=== PATIENT | female | born 1985 | race African-American/Black ===

== ENCOUNTER 2023-02-27 20:54 | Outpatient (REF) | payer MEDICAID, SELFPAY ==
[2023-03-01 20:24] LABS: Candida species Negative (Negative); Gardnerella vaginalis Positive (Negative); Trichomonas vaginalis Negative (Negative)
[2023-03-01 21:09] LABS: Trich vag by NAA Negative (Negative)
== END 2023-02-27 20:55 | disposition home or self-care (01) ==
LOC: LAB 20:54
PROVIDERS: Visit Provider Obstetrics & Gynecology
DX: Z20.2 Contact with and (suspected) exposure to infections with a predominantly sexual mode of transmission (principal); N89.8 Other specified noninflammatory disorders of vagina
CPT/HCPCS: 87480; 87491; 87510; 87591; 87660; 87661

== ENCOUNTER 2024-03-02 07:10 | Emergency (ER) | payer MEDICAID, SELFPAY ==
[2024-03-02 07:15] VITALS: BP 133/98; PULSE 80; TEMP 36.8; O2SAT 99; BMI 29.9
--- NOTE | 2024-03-02 07:29 | XR_ITS ---
The [address] [address] Patient Name: BLAYNE WALKER MRN: [id number] date: 1985 Sex: F Assigned Patient Location: ER Current Patient Location: ER Accession/Order Number: [id number] Exam Date: 03/02/2024 07:45 Report Date: 03/02/2024 09:54 At the request of: ARMIN JACKSON Procedure: XR thoracic spine 2V XR thoracic spine 2V CLINICAL: Atraumatic pain COMPARISON: AP only chest radiograph 04/15/2014, limited upper thoracic spine images from cervical spine CT 05/08/2015. TECHNIQUE: Two radiographic views thoracic spine in AP and lateral projection. FINDINGS: No fracture or dislocation is seen. Vertebral body height and AP alignment are grossly preserved. The cervicothoracic junction is partially obscured by bony overlap. Pedicles appear symmetric and intact. There are mild vertebral endplate degenerative changes in the mid to lower thoracic spine. Remaining included osseous structures appear grossly intact. Included portions of the lungs show no consolidation or localizing infiltrate. XR/XR thoracic spine 2V IMPRESSION: No fracture or dislocation is seen. Mild vertebral degenerative changes noted. Electronically authenticated by: TRES ESPINO Date: 03/02/2024 09:54
--- NOTE | 2024-03-02 07:30 | ED_ITS ---
HPI HPI - Back Pain/Injury General Chief Complaint: Back Pain/Injury Stated Complaint: back pain Time Seen by Provider: 03/02/24 07:11 Source: patient Mode of arrival: walk-in Limitations: no limitations History of Present Illness HPI Narrative: 38-year-old female presents to the emergency department for back pain. It started 5 days ago and was not associated with any trauma. It is in a small local area in her lower thoracic area. No dysuria or hematuria. No fever and chills. The pain does not seem to radiate and she states it hurts more to push on it. She was seen at another hospital emergency department and she was given Flexeril and a shot. Related Data Previous Rx's ?Medication ?Instructions ?Recorded tramadol 50 mg tablet 50 mg PO Q6H PRN pain 5 days #20 03/02/24 tabs Allergies Allergy/AdvReac Type Severity Reaction Status Date / Time No Known Drug Allergies Allergy Verified 03/02/24 07:14 Opioid HPI Opioid Management Most Recent Opioid Data: Last Pain Scale 2 03/02/24 08:42 Last ED Pain Assessment 03/02/24 08:42 Review of Systems ROS Narrative A ten point review of systems is negative except as noted above. Exam Narrative Exam Narrative: Nurses note and vital signs reviewed and patient is not hypoxic. General: The patient appears uncomfortable and is tearful Skin: Warm, dry, no pallor noted. There is no rash noted. Head: Normocephalic, atraumatic Eye: Normal conjunctiva, no drainage Ears, Nose, Mouth, and Throat: oral mucosa is moist. Nares patent. Cardiovascular: Regular Rate and Rhythm Respiratory: Patient is in no distress, no accessory muscle use, lungs are clear to auscultation, no wheezing, rales or rhonchi Back: No bruise or rash. In the lower thoracic area just to the right of midline she has a small area of tenderness. GI: Soft and nontender Musculoskeletal: The patient has no evidence of calf tenderness, no pitting edema, symmetrical pulses noted bilaterally Neurological: A&O, normal speech Psychiatric: Cooperative Constitutional Vital Signs, click to edit/add: Last Vital Signs Temp 98.2 F 03/02/24 07:15 Pulse 78 03/02/24 10:04 Resp 18 03/02/24 10:04 BP 133/109 H 03/02/24 10:04 Pulse Ox 98 03/02/24 10:04 Course Vital Signs Vital signs: Vital Signs Temperature 98.2 F 03/02/24 07:15 Pulse Rate 80 03/02/24 07:15 Respiratory Rate 18 03/02/24 07:15 Blood Pressure 133/98 H 03/02/24 07:15 Pulse Oximetry 99 03/02/24 07:15 Temperature 98.2 F 03/02/24 07:15 Pulse Rate 78 03/02/24 10:04 Respiratory Rate 18 03/02/24 10:04 Blood Pressure 133/109 H 03/02/24 10:04 Pulse Oximetry 98 03/02/24 10:04 MDM - Back Pain/Injury MDM Narrative Medical decision making narrative: X-rays and urinalysis are negative. She is not . She is feeling improved and is able to be discharged home. Treatment diagnosis and follow-up were discussed with the patient. My clinical impression is that she has muscular pain. Differential Diagnosis Differential diagnosis: Likely other (Thoracic spine fracture, muscle strain, UTI) Lab Data Attestation: I reviewed the patient's lab results. Labs: Lab Results 03/02/24 Range/Units 07:44 Urine Color Lt. yellow (YELLOW) Urine Clarity Clear (CLEAR) Urine pH 7.0 (5.0-9.0) Ur Specific Wood 1.025 (1.005-1.025) Urine Protein Negative (NEG/TRACE) mg/dL Urine Glucose (UA) Negative (NEGATIVE) mg/dL Urine Ketones Negative (NEGATIVE) mg/dL Urine Occult Blood Negative (NEGATIVE) Urine Nitrite Negative (NEGATIVE) Urine Bilirubin Negative (NEGATIVE) Urine Urobilinogen 0.2 (0.2-1.0) EU/dL Ur Leukocyte Esterase Negative (NEGATIVE) Urine RBC None seen (0-2) #/HPF Urine WBC None seen (NONE SEEN) #/HPF Ur Squamous Epith Cells Moderate A (NONE/RARE) #/LPF Urine Bacteria None seen (NONE SEEN) #/HPF Urine Mucus None seen (NONE SEEN) Urine HCG, Qual Negative (NEGATIVE) Imaging Data Thoracic x-ray: Radiologist's impression: ITS Impressions Thoracic Spine X-Ray 03/02/24 07:29 IMPRESSION: No fracture or dislocation is seen. Mild vertebral degenerative changes noted. Electronically authenticated by: TRES ESPINO Date: 03/02/2024 09:54 Discharge Plan Discharge Stand Alone Forms: Portal Instructions Chief Complaint: Back Pain/Injury Clinical Impression: Thoracic back pain Patient Disposition: Home, Self-Care Time of Disposition Decision: 10:03 Condition: Good Mode of Transportation: Private Vehicle Prescriptions / Home Meds: New tramadol 50 mg tablet 50 mg PO Q6H PRN (Reason: pain) 5 Days Qty: 20 0RF Print Language: Citizen Of [place] Referrals: Physician,Non-Staff, MD [Primary Care Provider] - 1 week
[2024-03-02] MEDS: ORPHENADRINE 60 MG/ 2 ML VIAL IM (07:35)
[2024-03-02] MEDS: KETOROLAC TROMETHAMINE 60 MG/2 ML VIAL IM (07:35)
[2024-03-02 07:56] LABS: Bilirubin Urine NEGATIVE (NEGATIVE); Blood Urine NEGATIVE (NEGATIVE); Clarity Urine CLEAR (CLEAR); Color Urine LT. YELLOW (YELLOW); Glucose Urine UA NEGATIVE (NEGATIVE); Ketones Urine NEGATIVE (NEGATIVE); Leukocyte Esterase Urine NEGATIVE (NEGATIVE); Nitrite Urine NEGATIVE (NEGATIVE); Protein Urine NEGATIVE (NEG/TRACE); Specific Gravity Urine 1.025 (1.005-1.025); Urobilinogen Urine 0.2 EU/dL (0.2-1.0)
[2024-03-02 08:08] LABS: HCG Qualitative Urine* NEGATIVE (NEGATIVE); Internal Control Within Normal Limits
[2024-03-02 08:13] LABS: Bacteria Urine NONE SEEN #/HPF (NONE SEEN); Mucus Urine NONE SEEN (NONE SEEN); RBC Urine NONE SEEN #/HPF (0-2); Squamous Epithelial Cell Urine MODERATE #/LPF (NONE/RARE); WBC Urine NONE SEEN #/HPF (NONE SEEN)
[2024-03-02 08:35] VITALS: BP 130/78; PULSE 82; O2SAT 98
[2024-03-02 10:04] VITALS: BP 133/109; PULSE 78; O2SAT 98
== END 2024-03-02 10:11 | disposition home or self-care (01) ==
PROVIDERS: Emergency Provider Emergency Medicine
DX: M54.6 Pain in thoracic spine (principal)
CPT/HCPCS: 72070; 81001; 84703; 96372; 99284; J1885; J2360

== ENCOUNTER 2024-04-29 20:26 | Outpatient (REF) | payer MEDICAID, SELFPAY | END 2024-04-29 20:27 | disposition home or self-care (01) | LOC: LAB 20:26 | PROVIDERS: Visit Provider Physician Assistant | DX: Z01.419 Encounter for gynecological examination (general) (routine) without abnormal findings (principal) | CPT/HCPCS: 87624; 88175 ==

== ENCOUNTER 2025-05-08 15:10 | Outpatient (REF) | payer MEDICAID, SELFPAY ==
--- OUTSIDE RECORDS SUMMARY | 2024-08-20 10:45 | XMS_ITS ---
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 * Medical History: Objective: * Vitals: Assessment: Plan: * Treatment: * Billing Information: * Visit Code: * Procedure Codes: * Electronic signature of LYRIC Amaro on 05/08/2025 at 10:56 AM EDT Sign off status: Pending * Provider: Nadja Wing Date: 1 10/21/2023 Generated for Printi ng/Faxing/eTransmitting on: 0 05/08/2025 10:56 AM EDT
--- OUTSIDE RECORDS SUMMARY | 2024-10-14 05:15 | XMS_ITS ---
Author Organization [facility] vice Address [address] [place], [place] [id number] Care Team Providers Care Policy Change Clerks Supervisor Name Role Phone Kerrie Scott [facility] [phone] REASON FOR VISIT Ext #1 Social History Sex Assigned At : Social History Observation Description Sex Assigned At Female Encounters Encounter Location Date Provider Diagnosis Dental Main [address] [place], [place] [id number] 10/14/2024 Kerrie Scott Plan Of Treatment No Information Progress Notes * Seema ZIMMER CDOB:1985 (39 yo F)Acc No.[id number]:10/14/2024 Patient: Seema MARTIN Provider: Karlos Scott DDS :1985 A ge:39 Y S ex:Female Date:10/14/2024 Address:[address] [place], [place] [id number] Subjective: * Chief Complaints: * 1 . Ext #1. * Medical History: Objective: * Vitals: Assessment: Plan: * Treatment: * Billing Information: * Visit Code: * Procedure Codes: * Electronic signature of Steph Scott DDS on 05/08/2025 at 10:56 AM EDT Sign off status: Pending * Provider: Karlos Scott DDS Date: 0 10/14/2024 Generated for Printi ng/Faxing/eTransmitting on: 0 05/08/2025 10:56 AM EDT
--- OUTSIDE RECORDS SUMMARY | 2025-05-08 11:00 | XMS_ITS | Encounter Summary ---
Author Organization [facility] Address [address] [place] [address] Care Team Providers Care Gas Distribution And Emergency Clerk Name Role Phone Raghav Robbins DO Unavailable Alex Sy MD Primary Care Provider [phone] Reason for Visit * Reason Comments Well Women Visit Encounter Details Date Type Department Care Team (Late st Contact Info) Description 05/08/2025 11:00 AM EDT Office Visit [facility] [address] [id number] Raghav Robbins DO [address] [place], [place] [id number] Well woman exam with routine gynecological exam Social History Tobacco Use Types Packs/Day Years Used Date Smoking Tobacco: Never Comments No Sex and Gender Information Value Date Recorded Sex Assigned at Not on file Legal Sex Female 11:47 PM EDT Gender Identity Not on file Sexual Orientation Not on file documented as of this encounter Last Filed Vital Signs Vital Sign Reading Time Taken Comments Blood Pressure 110/62 05/08/2025 11:24 AM EDT Pulse - - Temperature - - Respiratory Rate - - Oxygen Saturation - - Inhaled Oxygen Concentration - - Weight 64.9 kg (143 lb) 05/08/2025 11:24 AM EDT Height - - Body Mass Index 26.16 02/27/2023 11:50 AM EDT documented in this encounter Progress Notes * Marlena Jeffries NP - 05/08/2025 11:00 AM EDT Reason for Appointment: Patient ID: Seema Zimmer is a 39 y.o. female who presents for Well Women Visit Patient presents today for Annual Exam. MEDICATIONS Current Outpatient Medications Medication Instructions acyclovir (Zovirax) 400 MG tablet TAKE 1 TABLET BY MOUTH TWICE A DAY FOR 30 DAYS albuterol (2.5 MG/3ML) 0.083% nebulizer solution INHALE 1 NEBULE FOUR TIMES DAILY albuterol HFA 90 mcg/act inhaler INHALE 1 PUFF EVERY 6 HOURS NEEDED cetirizine (ZyrTEC) 10 MG tablet Every 24 hours FLUoxetine (PROZAC) 20 mg, Oral, Daily hydrOXYzine HCl (ATARAX) 25 mg, Oral, 4 times daily PRN Symbicort 160-4.5 MCG/ACT inhaler 2 puffs, Inhalation, 2 times daily, Rinse mouth after use. 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 (HCC)10/30/2023 Moderate persistent asthma without complication (HCC) 10/30/2023 Seasonal allergic rhinitis due to pollen 10/30/2023 Moderate persistent asthma with (acute) exacerbation (HCC) 10/30/2023 Yeast infection 11/02/2023 Exposure to STD 11/02/2023 Vaginal discharge 11/02/2023 Resolved Ambulatory Problems Diagnosis Date Noted No Resolved Ambulatory Problems Past Medical History: Diagnosis Date Encounter for IUD insertion Encounter for IUD removal 02/27/2023 Herpes 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 Menorrhagia with irregular cycle HISTORY PAST MEDICAL HISTORY SOCIAL HISTORY Past Medical History: Diagnosis Date Encounter for IUD insertion Encounter for IUD removal 02/27/2023 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 No pertinent surgical history. REVIEW OF SYSTEMS Review of Systems: Review of Systems Constitutional: Negative. HENT: Negative. Eyes: Negative. Respiratory: Negative. Cardiovascular: Negative. Gastrointestinal: Negative. Genitourinary: Negative. Musculoskeletal: Negative. Skin: Negative. Neurological: Negative. All other systems reviewed and are negative. Hematological: Negative. Endocrine: Negative. Allergic/Immunologic: Negative. OBJECTIVE Objective: Physical Exam Constitutional: Appearance: Normal appearance. She is well-developed. Genitourinary: Breasts: Breasts are soft. Right: Normal. Left: Normal. Cardiovascular: Rate and Rhythm: Normal rate and regular rhythm. Pulmonary: Effort: Pulmonary effort is normal. Breath sounds: Normal breath sounds. Abdominal: General: Bowel sounds are normal. There is no distension. Palpations: Abdomen is soft. Tenderness: There is no abdominal tenderness. There is no guarding or rebound. Musculoskeletal: General: No swelling. Normal range of motion. Right lower leg: No edema. Left lower leg: No edema. Neurological: Mental Status: She is alert and oriented to person, place, and time. Skin: General: Skin is warm and dry. Psychiatric: Mood and Affect: Mood normal. Behavior: Behavior normal. Vitals and nursing note reviewed. Exam conducted with a pressure dispatcher present. Vitals: Estimated body mass index is 26.16 kg/m?? as calculated from the following: Height as of 02/27/23: 5' 2 . Weight as of this encounter: 143 lb. BP: 110/62 No LMP recorded (within months). ASSESSMENT & PLAN ICD-10-CM 1. Well woman exam with routine gynecological exam Z01.419 Pap Smear HPV DNA probe, amplified Annual Exam: Patient presents today for an annual exam. Patient states she is doing well and has no complaints. Pap was obtained without difficulty. Orders Placed This Encounter Procedures HPV DNA probe, amplified Follow Up: Patient is to return in one year for annual unless needed otherwise. Documented by Marlena Jeffries NP on behalf of: Raghav Robbins DO documented in this encounter Plan of Treatment Upcoming Encounters Date Type Department Care Team (Late st Contact Info) Description 05/18/2026 11:00 AM EDT Procedure Visit [facility] [address] [place] [address] Raghav Robbins DO [address] [place] [address] Scheduled Orders Name Type Priority Associated Diagnoses Orde r Schedule Pap Smear Pathology and Cytology Routine Well woman exam with routine gynecological exam Ordered: 05/08/2025 HPV DNA probe, amplified Microbiology Routine Well woman exam with routine gynecological exam Ordered: 05/08/2025 documented as of this encounter Visit Diagnoses Diagnosis Well woman exam with routine gynecological exam Routine gynecological examination documented in this encounter Care Teams Gas Distribution And Emergency Clerk Relationship Specialty Start Date End Date Raghav Robbins DO [address] [place] [address] PCP - [facility] [place] MANAGER PMO 06/04/24 Alex Sy MD [address] [place] [address] [place] [address] PCP - General Pediatrics 02/25/25 documented as of this encounter
--- OUTSIDE RECORDS SUMMARY | 2025-05-08 15:13 | XMS_ITS | Encounter Summary ---
Author Organization [facility] Address [address] [place] [address] Care Team Providers Care Crown Assembly Machine Operator Name Role Phone Raghav Robbins DO Unavailable Alex Sy MD Primary Care Provider [phone] Encounter Details Date Type Department Care Team (Latest Contact Info) Description 05/08/2025 Travel Social History Tobacco Use Types Packs/Day Years Used Date Smoking Tobacco: Never Comments No Sex and Gender Information Value Date Recorded Sex Assigned at Not on file Legal Sex Female 11:47 PM EDT Gender Identity Not on file Sexual Orientation Not on file documented as of this encounter Plan of Treatment Upcoming Encounters Date Type Department Care Team (Late st Contact Info) Description 05/18/2026 11:00 AM EDT Procedure Visit [facility] [address] [place] [address] Raghav Robbins DO [address] [place] [id number] documented as of this encounter Visit Diagnoses Not on filedocumented in this encounter Care Teams Crown Assembly Machine Operator Relationship Specialty Start Date End Date Raghav Robbins DO [address] [place] [address] PCP - [facility] [place] STEAM CRANE OPERATOR 06/04/24 Alex Sy MD [address] [place], [place] [phone] PCP - General Pediatrics 02/25/25 documented as of this encounter
--- OUTSIDE RECORDS SUMMARY | 2025-05-08 15:13 | XMS_ITS | Clinical Summary ---
Author Organization [employer] [facility] tem Address [id number] [address] [place] [address] Care Team Providers Care Relay Checker Name Role Phone Alex Sy DO Primary Care Provider [phone] Allergies No known active allergies Medications albuterol (PROVENTIL HFA;VENTOLIN HFA) 90 mcg/actuation inhaler Inhale 2 puffs every 6 (six) hours as needed for wheezing. Active albuterol (PROVENTIL,BRIANNE STEPHANIE) 2.5 mg /3 mL (0.083 %) nebulizer solutionIndicati ons:Severe persistent asthma with exacerbation (CMS-HCC),Modera te asthma with acute exacerbation, unspecified whether persistent Inhale 3 mL (2.5 mg total) by nebulization every 4 (four) hours as needed for wheezing. 75 mL 5 0 Active albuterol (PROVENTIL,BRIANNE STEPHANIE) 2.5 mg /3 mL (0.083 %) nebulizer solutionIndicati ons:Mild intermittent asthma without complication Inhale 3 mL (2.5 mg total) by nebulization every 6 (six) hours as needed for wheezing. 75 mL 0 Active hydrOXYzine (VISTARIL) 25 mg capsuleIndicatio ns:Generalized anxiety disorder Take 1 capsule (25 mg total) by mouth daily as needed for anxiety. 20 capsule 5 Active budesonide-glyco pyr-formoterol 160-9-4.8 mcg/actuation HFA aerosol inhalerIndicatio ns:Severe persistent asthma with acute exacerbation (CMS-HCC) Inhale 2 puffs in the morning and 2 puffs before bedtime. Lot [id number] Exp 2027-05. 5.9 g Active escitalopram (LEXAPRO) 10 mg tabletIndication s:Generalized anxiety disorder TAKE 1 TABLET (10 MG TOTAL) BY MOUTH IN THE MORNING 30 tablet 1 Active cyclobenzaprine (FLEXERIL) 10 mg tablet Take 1 tablet (10 mg total) by mouth 2 (two) times a day as needed for muscle spasms. 10 tablet 5 Active Active Problems Problem Noted Date Diagnosed Date Generalized anxiety disorder 12/03/2024 Assessment & Plan (01/14/2025 4:34 PM EDT): Anxiety symptoms have improved with starting on Lexapro 10 mg 1 tablet daily and using hydroxyzine 25 mg 1 capsule daily as needed for anxiety. Continue with current medications Assessment & Plan (12/03/2024 5:39 PM EDT): Patient had responded previously to SSRI and hydroxyzine. We will restart SSRI escitalopram 10 mg 1 tablet daily and use hydroxyzine 25 mg 1 capsule daily as needed for acute/ situation anxiety. Discussed with patient potential side effects and if she develops them or has worsening symptoms or suicidal ideations to stop medications and contact office History of herpes genitalis 04/18/2019 Abnormality of gait followin g cerebrovascular accident (CVA) 04/18/2019 Overview (04/18/2019): The patient had CVA and was an extreme delivery herself- physical therapy- gait nearly normal now Hx of delivery, currently 03/02 Overview (03/02/2019): First baby 34 weeks Second baby 36 weeks Third baby 37 weeks Fourth baby 37 weeks Fifth baby 37 weeks Asthma 07/16/2018 Assessment & Plan (01/14/2025 4:33 PM EDT): Based on her current and persistent symptoms of wheezing and shortness of breath and the results from her pulmonary function test in 2022 which showed Severe obstructive airflow defect with significant post bronchodilator response. Findings favor process such as asthma. There is evidence of hyperinflation and air trapping physiology. Diffusion capacity is normal. Symptoms would be consistent with moderate persistent asthma. Patient states that symptoms are not controlled with current regimen of Symbicort 160/4.5 mcg per actuation 2 puffs twice daily as to use albuterol inhaler or nebulizer treatment 2 to 3 times per day. PLAN: Patient to hold Symbicort. Given samples of Breztri 160/9/4.8 mcg per actuation 2 puffs inhaled twice daily for 1 week to see if symptoms will improve with addition of LAMA. Continue to use albuterol rescue inhaler and/or albuterol nebulizer treatments as needed for wheezing and shortness of breath. Call office once completed sample to update on how medication worked with breathing symptoms Assessment & Plan (12/03/2024 5:42 PM EDT): Patient's maintenance medications include Symbicort 160/4.5 mcg per actuation 2 puffs inhaled twice daily. She also has albuterol rescue inhaler and albuterol nebulizer solutions to use for breakthrough symptoms. Last pulmonary function test in February 2023 - Severe obstructive airflow defect with significant post bronchodilator response. Findings favor process such as asthma. There is evidence of hyperinflation and air trapping physiology. Diffusion capacity is normal. Patient's symptoms consistent with maintenance medication not controlling. We will treat current symptoms with prednisone 20 mg daily for 5 days to try to return symptoms to baseline. No evidence of infection so antibiotic was not prescribed Resolved Problems Problem Noted Date Diagnosed Date Resolved Date Gestational hypertension, third trimester 04/18/2019 01/14/2025 Asthma affecting in third trimester 04/18/20 19 01/14/2025 Asthma during 04/11/201901/02 Encounters Date Type Department Care Team Description 02/28/2025 Travel 02/24/2025 11:04 AM EDT - 02/24/2025 2:[address] [facility] [address] [place] [address] Faraz Pulido, DO Acute right-sided low back pain without sciatica (Primary Dx) Discharge Disposition: Home 02/24/2025 Travel from Last 3 Months Immunizations Immunization Administration Dates Next Due Tdap 07/17/2021 Family History Medical History Relation Name Comments Leukemia Brother Diabetes Father Hypertension Father Sickle cell anemia Son Relation Name Status Comments Brother Father Son Social History Tobacco Use Types Packs/Day Years Used Date Smoking Tobacco: Never Smokeless Tobacco: Never Tobacco Cessation:Counseling Given: Yes Alcohol Use Standard Drinks/Week Comments Not Currently 0 (1 standard drink = 0.6 oz pur e alcohol) rare AUDIT-C Answer Date Recorded Frequency of Alcohol Consumption Never 03/02/2019 Average Number of Drinks Not on file 019 Frequency of Binge Drinking Not on file 02/03 PHQ-2 Answer Date Recorded Total Score 2 01/14/2025 Childcare Answer Date Recorded Childcare Unknown 02/13/2019 Employment Answer Date Recorded Employment Unknown 02/13/2019 Hunger Screening Answer Date Recorded Within the past 12 months we worried whether our food would run out before we got money to buy more. Never True 02/24/2025 Within the past 12 months th e food we bought just didn't last and we didn't have money to get more. Never True 02/24/2025 Purpose - Life Answer Date Recorded Purpose and direction in life Unknown Comments No Sex and Gender Information Value Date Recorded Sex Assigned at Not on file Legal Sex Female 11:38 AM EDT Gender Identity Not on file Sexual Orientation Not on file Last Filed Vital Signs Vital Sign Reading Time Taken Comments Blood Pressure 147/93 02/24/2025 2:39 PM EDT Pulse 88 02/24/2025 2:39 PM EDT Temperature 37.1 C (98.7 F) 02/24/2025 11:09 AM EDT Respiratory Rate 19 02/24/2025 1:45 PM EDT Oxygen Saturation 100% 02/24/2025 2:39 PM EDT Inhaled Oxygen Concentration - - Weight 68 kg (150 lb) 02/24/2025 11:09 AM EDT Height 152.4 cm (5') 02/24/2025 11:09 AM EDT Body Mass Index 29.29 02/24/2025 11:09 AM EDT Plan of Treatment Upcoming Encounters Date Type Department Care Team (Late st Contact Info) Description 10/23/2025 1:00 PM EST Office Visit [facility] [address] [place] [address] [phone] Davis Ames, OD [address] [facility] [address] [facility] [address] [place] [address] Health Maintenance Due Date Last Done Comments Adult BMI Follow Up Plan 2004 COVID-19 Vaccine (3 - 2023-2 5 season) 2024 12/31/2021, 12/10/2021 Influenza Vaccine 05/05/2025 Depression Screening 01/14/2026 01/14/2025 Adult BMI Screening 02/24/2026 02/24/2025 Tobacco Screening 02/24/2026 02/24/2025 Pap Smear 04/29/2027 04/29/2024, 01/11/2023 DTaP,Tdap and Td Vaccines (8 - Td or Tdap) 07/17/2031 07/17/2021, 08/12/2015, 01/13/1999, Additional history exists Medical Devices Not on file Procedures Procedure Name Priority Date/Time Associated Diagnosis Comments HCG-BETA, SERUM Routine 03/02/2025 11:52 AM EDT Encounter for test, result positive HCG-BETA, SERUM Routine 02/28/2025 4:49 PM EDT Encounter for test, result positive CT ABDOMEN AND PELVIS WO CONT STAT 02/24/2025 1:45 PM EDT XR CHEST 1 VW STAT 02/24/2025 1:44 PM EDT POCT , URINE (NUCG) Routine 02/24/2025 1:23 PM EDT POCT NURSING URINE MACROSCOPIC UA Routine 02/24/2025 1:21 PM EDT ER EXTRA URINE MARBLE STAT 02/24/2025 1:11 PM EDT ER EXTRA URINE CULTURE STAT 1:11 PM EDT ER EXTRA URINE STAT 02/24/2025 1:11 PM EDT URINE CULTURE STAT 02/24/2025 1:11 PM EDT TROP I, HIGH SENSITIVITY 1 HOUR STAT 02/24/2025 12:29 PM EDT ECG 12-LEAD STAT 02/24/2025 11:48 AM EDT TROPONIN I, HIGH SENSITIVITY 0 HOUR STAT 02/24/2025 11:27 AM EDT D-DIMER STAT 02/24/2025 11:27 AM EDT TROPONIN I, HIGH SENSITIVITY 0 HOUR STAT 02/24/2025 11:27 AM EDT COMPREHENSIVE METABOLIC PANEL STAT 02/24/2025 11:27 AM EDT CBC WITH AUTO DIFFERENTIAL STAT 02/24/2025 11:27 AM EDT from Last 3 Months Results * hCG, quantitative, (03/02/2025 11:52 AM EDT) Only the most recent of2 resultswithin the time period is included. SERUM B HCG,3RD I.S. <5 mIU/mL 03/02/2025 12:39 PM EDT [facility] Blood Venous blood / Unknown Venipuncture / Unknown 03/02/2025 11:52 AM EDT 03/02/2025 11:52 AM EDT Narrative [facility] - 03/02/2025 12:39 PM EDT WEEKS (SINCE LMP) MIU/mL 3 WEEKS 5 - 50 4 WEEKS 5 - 426 5 WEEKS 18 - 7,340 6 WEEKS 1,080 - 56,500 7-8 WEEKS 7,650 - 229,000 9-12 WEEKS 25,700 - 288,000 13-16 WEEKS 13,300 - 254,000 17-24 WEEKS 4,060 - 165,400 25-40 WEEKS 3,640 - 117,000 MALES AND NON- FEMALES - <5 MIU/mL This test has been FDA approved for use in only. Elevated levels are not necessarily diagnostic for trophoblastic or nontrophoblastic neoplasms. us Raghav Robbins DO LAB BLOOD ORDERABLES Final Resu lt [facility] [address] [place] [address], [place] * CT abdomen and pelvis without contrast (02/24/2025 1:45 PM EDT) Anatomical Region Laterality Modality Body, Abdomen, Body Covera N/A Compu gloria Tomography 02/24/2025 2:0 9 PM EDT Narrative 02/24/2025 2:11 PM EDT EXAM: ABDOMEN AND PELVIS CT WITHOUT CONTRAST CLINICAL INFORMATION: Bilateral flank pain, difficulty with urination evaluation for signs of acute kidney stones/acute abnormalities.. TECHNIQUE: Routine unenhanced CT of the abdomen and pelvis was performed utilizing 5 mm axial reconstructions. Coronal and sagittal reformatted images as were obtained and reviewed. Automated exposure control was utilized. COMPARISON: 02/22/2022 FINDINGS: The limited visualized lung bases are unremarkable. There are no renal or ureteral stones. There is no collecting system dilatation in either kidney. The gallbladder is present. The liver, spleen, pancreas, and adrenals are unremarkable within the limitations of an unenhanced CT. A normal appendix is identified. There are no dilated loops of bowel or evidence for pneumatosis or free air. There is no significant free fluid. The abdominal aorta and common iliac arteries are normal in diameter. IMPRESSION: 1. No acute abnormalities in the abdomen and pelvis. 2. No renal or ureteral stones. 3. Normal appendix. All CT scans at this facility use dose modulation, iterative reconstruction, and/or weight based dosing when appropriate to reduce radiation dose to as low as reasonably achievable. Finalized by Dereck Dukes MD on 02/24/2025 2:11 PM Procedure Note Dereck Dukes MD - 02/24/2025 EXAM: ABDOMEN AND PELVIS CT WITHOUT CONTRAST CLINICAL INFORMATION: Bilateral flank pain, difficulty with urinationevaluation for signs of acute kidney stones/acute abnormalities.. TECHNIQUE: Routine unenhanced CT of the abdomen and pelvis was performedutilizing 5 mm axial reconstructions. Coronal and sagittal reformattedimages as were obtained and reviewed. Automated exposure control wasutilized. COMPARISON: 02/22/2022 FINDINGS: The limited visualized lung bases are unremarkable. There are no renal or ureteral stones. There is no collecting systemdilatation in either kidney. The gallbladder is present. The liver,spleen, pancreas, and adrenals are unremarkable within the limitations ofan unenhanced CT. A normal appendix is identified. There are no dilatedloops of bowel or evidence for pneumatosis or free air. There is no significant free fluid.The abdominal aorta and common iliac arteries are normal in diameter. IMPRESSION: 1. No acute abnormalities in the abdomen and pelvis. 2. No renal or ureteral stones. 3. Normal appendix. All CT scans at this facility use dose modulation, iterativereconstruction, and/or weight based dosing when appropriate to reduceradiation dose to as low as reasonably achievable. Finalized by Dereck Dukes MD on 02/24/2025 2:11 PM Faraz Pulido DO [facility] CT ORDERABLES Final Resul t * X-ray chest 1 view (02/24/2025 1:44 PM EDT) Anatomical Region Laterality Modality Body, Chest N/A Computed Radiogr aphy 02/24/2025 1:45 PM EDT Narrative 02/24/2025 1:46 PM EDT XR CHEST 1 VW 02/24/2025 1:40 PM INDICATION: Shortness of breath/Cough eval for pneumonia/acute abnormalities COMPARISON: 06/04/2023 TECHNIQUE: PA view of the chest was obtained FINDINGS: The lungs are clear. There is no pneumothorax. There is no pleural effusion. The cardiomediastinal silhouette is unremarkable. No acute osseous abnormalities. IMPRESSION: No acute cardiopulmonary process. Finalized by Alex Dill on 02/24/2025 1:46 PM Procedure Note Alex Dill MD - 02/24/2025 XR CHEST 1 VW 02/24/2025 1:40 PM INDICATION: Shortness of breath/Cough eval for pneumonia/acuteabnormalities COMPARISON: 06/04/2023 TECHNIQUE: PA view of the chest was obtained FINDINGS: The lungs are clear. There is no pneumothorax. There is no pleuraleffusion. The cardiomediastinal silhouette is unremarkable. No acuteosseous abnormalities. IMPRESSION: No acute cardiopulmonary process. Finalized by Alex Dill on 02/24/2025 1:46 PM us Faraz Pulido DO IMG DIAGNOSTIC IMAGING ORDERA BLES Final Result * POCT , urine (02/24/2025 1:23 PM EDT) Pathologist [facility] POC Urine Negative Negative, Indeterminate 02/24/2025 1:21 PM EDT [facility] Urine 02/24/2025 1:23 PM EDT 02/24/2025 1:21 PM EDT Faraz Pulido DO POINT OF CARE TEST ORDERABLES Final Result [facility] [address] [place] [address], [place] * (ABNORMAL) POCT Nursing Urine Macroscopic UA (02/24/2025 1:21 PM EDT) POC Urine Specific [place] 1.025 1.010, 1.015, 1.020, 1.025 02/24/2025 1:15 PM EDT [facility] POC Urine Leukocyte Esterase Negative Negative 02/24/2025 1:15 PM EDT [facility] POC Urine Nitrite Negative Negative 02/24/2025 1:15 PM EDT [facility] POC Urine pH 5.5 5.0, 6.0, 6.5, 7.0, 7.5, 8.0, 8.5, 5.5 02/24/2025 1:15 PM EDT [facility] POC Urine Protein Negative Negative 02/24/2025 1:15 PM EDT [facility] POC Urine Glucose Negative Negative 02/24/2025 1:15 PM EDT [facility] POC Urine Ketones Negative Negative 02/24/2025 1:15 PM EDT [facility] POC Urine Urobilinogen 0.2 E.U./dL 02/24/2025 1:15 PM EDT [facility] POC Urine Bilirubin Negative Negative 02/24/2025 1:15 PM EDT [facility] POC Urine Blood/HGB Trace(A) Negative 02/24/2025 1:15 PM EDT [facility] Urine 02/24/2025 1:21 PM EDT 02/24/2025 1:15 PM EDT us Faraz Pulido DO POINT OF CARE TEST ORDERABLES Final Result Performing Organization Address City/[facility] Co de Phone Number [address] [place] [address], [place] * Extra Urine [place] (02/24/2025 1:11 PM EDT) Extra Tube Auto Resulted 02/24/2025 3:01 PM EDT [facility] Urine Urine specimen collection, clean catch / Unknown 02/24/2025 1:11 PM EDT 02/24/2025 2:42 PM EDT us Marva Aragon [employer] URINE ORDERABLES Tiffanie l Result Performing Organization Address City/[facility]/ZIP Co de Phone Number [address] [place] [address], [place] * Extra Urine Culture (02/24/2025 1:11 PM EDT) Extra Tube Auto Resulted 02/24/2025 4:02 PM EDT [facility] Urine Urine specimen collection, clean catch / Unknown 02/24/2025 1:11 PM EDT 02/24/2025 2:42 PM EDT Marva Aragon [employer] URINE ORDERABLES Tiffanie l Result [address] [place] [address], [place] * Extra Urine (02/24/2025 1:11 PM EDT) Extra Tube Auto Resulted 02/24/2025 3:01 PM EDT [facility] Urine Urine / Unknown 02/24/2025 1 :11 PM EDT 02/24/2025 2:42 PM EDT Marva Aragon [employer] URINE ORDERABLES Tiffanie l Result Performing Organization Address [facility] Co de Phone Number [address] [place] [address], [place] * Urine Culture Urine, Clean Catch Midstream (02/24/2025 1:11 PM EDT) CULTURE RESULTS <10,000 ORGANISMS/m L NORMAL URO GENITAL CHUCK 02/25/2025 5:59 PM EDT [facility] Urine Urine specimen collection, clean catch / Unknown 02/24/2025 1:11 PM EDT 02/24/2025 2:42 PM EDT us Marva Aragon [employer] MICROBIOLOGY - GENERA L ORDERABLES Final Result Performing Organization Address City/[facility]/ZIP Co de Phone Number [facility] [address] [place] [address], [place] [phone] * Troponin I, High Sensitivity 1 Hour (02/24/2025 12:29 PM EDT) TROPONIN I, HIGH SENSITIVITY <2 <16 ng/L 02/24/2025 1:09 PM EDT [facility] Blood Venous blood / Unknown Venipuncture / Unknown 02/24/2025 12:29 PM EDT 02/24/2025 12:38 PM EDT Marva Aragon [facility]GRAPHY [facility] LAB BLOOD ORDERABLES Final Result [address] [place] [address], [place] * ECG 12 lead (02/24/2025 11:48 AM EDT) 02/24/2025 11:4 8 AM EDT Marva Aragon [employer] ECG ORDERABLES Final Result Performing Organization Address City/[facility]/ZIP Co de Phone Number [facility] * Troponin I, High Sensitivity 0 Hour (02/24/2025 11:27 AM EDT) Pathologist [facility] TROPONIN I, HIGH SENSITIVITY <2 <16 ng/L 02/24/2025 11:59 AM EDT [facility] Blood Venous blood / Unknown Venipuncture / Unknown 02/24/2025 11:27 AM EDT 02/24/2025 11:28 AM EDT Marva Aragon [employer] LAB BLOOD ORDERABLES Final Result Performing Organization Address City/[facility]/ZIP Co de Phone Number [address] [place] [address], [place] * (ABNORMAL) CBC auto differential (02/24/2025 11:27 AM EDT) Pathologist [facility] WBC 6.0 4 - 11 x10E9/L 02/24/2025 11:45 AM EDT [facility] RBC Count 4.92 3.8 - 5.2 X10E12/L 02/24/2025 11:45 AM EDT [facility] Hemoglobin 11.4(L) 11.7 - 15.5 g/dL 02/24/2025 11:45 AM EDT [facility] Hematocrit 36.1 35 - 47 % 02/24/2025 11:45 AM EDT [facility] MCV 73(L) 80 - 100 fL 02/24/2025 11:45 AM EDT [facility] MCH 23.2(L) 27 - 34 pg 02/24/2025 11:45 AM EDT [facility] MCHC 31.7(L) 32 - 36 g/dL 02/24/2025 11:45 AM EDT [facility] RDW 17.7(H) 11.5 - 15 % 02/24/2025 11:45 AM EDT [facility] Platelet Count 316 150 - 450 X10E9/L 02/24/2025 11:45 AM EDT [facility] MPV 7.5 7 - 12 fL 02/24/2025 11:45 AM EDT [facility] Neutrophils % 64.9 % 02/24/2025 11:45 AM EDT [facility] Lymphocytes % 26.6 % 02/24/2025 11:45 AM EDT [facility] Monocytes % 7.9 % 02/24/2025 11:45 AM EDT [facility] Eosinophils % 0.3 % 02/24/2025 11:45 AM EDT [facility] Basophils % 0.3 % 02/24/2025 11:45 AM EDT [facility] Neutrophils Absolute (A) 3.9 1.5 - 6.6 10*3/uL 02/24/2025 11:45 AM EDT [facility] Lymphocytes Absolute 1.6 1.0 - 3.5 10*3/uL 02/24/2025 11:45 AM EDT [facility] Monocytes Absolute 0.5 0.0 - 0.9 10*3/uL 02/24/2025 11:45 AM EDT [facility] Eosinophils Absolute 0.0 0.0 - 0.4 10*3/uL 02/24/2025 11:45 AM EDT [facility] Basophils Absolute 0.0 0.0 - 0.2 10*3/uL 02/24/2025 11:45 AM EDT [facility] Differential Type AUTOMATED DIFFERENTIAL 02/24/2025 11:45 AM EDT [facility] Blood Venous blood / Unknown Venipuncture / Unknown 02/24/2025 11:27 AM EDT 02/24/2025 11:28 AM EDT Marva Aragon [employer] LAB BLOOD ORDERABLES Final Result Performing Organization Address [facility]/ZIP Co de Phone Number [address] [place] [address], [place] * D-Dimer (02/24/2025 11:27 AM EDT) Pathologist [facility] D DIMER <150 1 - 255 ug/mL 02/24/2025 12:41 PM EDT [facility] Comment:Results <255 ng/mL D DU: The presensence of a VTE can safely be excluded with a negative D-Dimer result and Wells score. A negative result doesn't exclude the possibility of DIC. The test should be repeated along with other diagnostic tests if the patient's symptoms persist or worsen. Blood Venous blood / Unknown Venipuncture / Unknown 02/24/2025 11:27 AM EDT 02/24/2025 11:28 AM EDT Marva Aragon [employer] LAB BLOOD ORDERABLES Final Result Performing Organization Address City/[facility]/ZIP Co de Phone Number [address] [place] [address], [place] * (ABNORMAL) Comprehensive metabolic panel (02/24/2025 11:27 AM EDT) SODIUM 139 134 - 146 mmol/L 02/24/2025 11:50 AM EDT [facility] POTASSIUM 4.6 3.5 - 5.0 mmol/L 02/24/2025 11:50 AM EDT [facility] CHLORIDE 103 98 - 109 mmol/L 02/24/2025 11:50 AM EDT [facility] CARBON DIOXIDE 26 22 - 32 mmol/L 02/24/2025 11:50 AM EDT [facility] ANION GAP 10 5 - 15 mmol/L 02/24/2025 11:50 AM EDT [facility] BLOOD UREA NITROGEN 16 5 - 23 mg/dL 02/24/2025 11:50 AM EDT [facility] CREATININE 0.58 0.40 - 1.00 mg/dL 02/24/2025 11:50 AM EDT [facility] Comment:METHOD TRACEABLE TO IDMS STANDARD GLUCOSE 104(H) 65 - 99 mg/dL 02/24/2025 11:50 AM EDT [facility] CALCIUM 9.5 8.5 - 10.5 mg/dL 02/24/2025 11:50 AM EDT [facility] TOTAL PROTEIN 8.6(H) 6.0 - 8.0 g/dL 02/24/2025 11:50 AM EDT [facility] ALBUMIN 4.1 3.2 - 5.3 g/dL 02/24/2025 11:50 AM EDT [facility] ALKALINE PHOSPHATASE 98 39 - 130 U/L 02/24/2025 11:50 AM EDT [facility] AST 29 <=41 U/L 02/24/2025 11:50 AM EDT [facility] ALT 22 <=31 U/L 02/24/2025 11:50 AM EDT [facility] BILIRUBIN,TOTAL 1.3(H) 0.3 - 1.2 mg/dL 02/24/2025 11:50 AM EDT [facility] EGFR Non-Race Dependent >90 >=60 ml/min/1.7 3sq.m 02/24/2025 11:50 AM EDT [facility] Comment: eGFR not reported due to non-numeric value for Creatinine. Reported eGFR is based on the CKD-EPI 2020 equation that does not use a race coefficient. Blood Venous blood / Unknown Venipuncture / Unknown 02/24/2025 11:27 AM EDT 02/24/2025 11:28 AM EDT us Marva Aragon [employer] LAB BLOOD ORDERABLES Final Result [facility] [address] [place] [address], from Last 3 Months Insurance [employer] * Guarantor: Seema Zimmer Account Type Relation to Patient Date of Phone Billing Address [employer] Self 1985 [address] [place] [address] Care Teams Relay Checker Relationship Specialty Start Date End Date Alex Sy DO [address] [place] [address], [facility] [address] [place] [address] PCP - General Family Medicine 12/03/24
--- OUTSIDE RECORDS SUMMARY | 2025-05-08 15:13 | XMS_ITS | Clinical Summary ---
Author Organization [facility] Healthcare Address [address] [place] [address] Care Team Providers Care Geriatric Nurse Assistant Name Role Phone Raghav Robbins DO Unavailable Alex Sy MD Primary Care Provider [phone] Allergies No known active allergies Medications albuterol HFA 90 mcg/act inhaler INHALE 1 PUFF EVERY 6 HOURS NEEDED Active cetirizine (ZyrTEC) 10 MG tablet 1 (one) time each day at the same time. Active hydrOXYzine HCl (Atarax) 25 MG tabletIndication s:JASON (generalized anxiety disorder) Take 1 tablet (25 mg) by mouth 4 (four) times a day as needed for anxiety 60 tablet 2 10/30/19 24 Active albuterol (2.5 MG/3ML) 0.083% nebulizer solutionIndicati ons:Severe persistent asthma, uncomplicated (HCC),Asthma (HCC) INHALE 1 NEBULE FOUR TIMES DAILY 150 mL 5 11/24/19 24 Active acyclovir (Zovirax) 400 MG tabletIndication s:Recurrent genital herpes TAKE 1 TABLET BY MOUTH TWICE A DAY FOR 30 DAYS 60 tablet 3 01/24/20 24 Active Symbicort 160-4.5 MCG/ACT inhalerIndicatio ns:Moderate persistent asthma without complication (HCC) INHALE 2 PUFFS BY MOUTH TWICE A DAY. RINSE MOUTH AFTER USE 10.2 each 3 02/07/20 24 Active FLUoxetine (PROzac) 20 MG capsuleIndicatio ns:JASON (generalized anxiety disorder) TAKE 1 CAPSULE BY MOUTH EVERY DAY 30 capsule 2 03/26/20 24 Active montelukast (Singulair) 10 MG tablet montelukast 10 mg tablet 2024 Discontinued Active Problems Problem Noted Date Diagnosed Date Yeast infection 11/02/2023 Exposure to STD 11/02/2023 Vaginal discharge 11/02/2023 JASON (generalized anxiety disorder) 10/30/2023 Assessment & Plan (10/30/2023 3:13 PM EST): Severe symptoms and not functioning well. Start prozac and warned will take 2-3 weeks to notice improvement in mood. Start hydroxyzine PRN. 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 Continue symbicort and use albuterol PRN. Encounters Date Type Department Care Team Description 05/08/2025 11:00 AM EDT Office Visit [facility] [address] [place] [address] Raghav Robbins DO Well woman exam with routine gynecological exam 05/08/2025 Bamboo flowsheet [facility] [address] [place] [address] Raghav Robbins DO 05/08/2025 Travel 02/28/2025 External Result Encounter [facility] External Department Unsolicited Raghav Robbins DO 02/26/2025 Telephone [facility] [address] [facility] [place] [address] Nguyen Noriega MA 02/05/2025 Telephone [facility] [address] [place] [address] Raghav Robbins DO from Last 3 Months Family History Medical History Relation Name Comments Leukemia Brother Diabetes Father Hypertension Father No Known Problems Maternal Grandmother No Known Problems Paternal Grandmother Relation Name Status Comments Brother Father Maternal Grandfather Maternal Grandmother Paternal Grandfather Paternal Grandmother Sister 1 Alive Sister 2 Alive Sister 3 Alive Sister 4 Alive Social History Tobacco Use Types Packs/Day Years Used Date Smoking Tobacco: Never Tobacco Cessation:Counseling Given: Not Answered Comments No Sex and Gender Information Value Date Recorded Sex Assigned at Not on file Legal Sex Female 11:47 PM EDT Gender Identity Not on file Sexual Orientation Not on file Last Filed Vital Signs Vital Sign Reading Time Taken Comments Blood Pressure 110/62 05/08/2025 11:24 AM EDT Pulse 92 10/30/2023 2:43 PM EST Temperature 36.7 C (98 F) 10/30/2023 2:43 PM EST Respiratory Rate 18 10/30/2023 2:43 PM EST Oxygen Saturation 98% 10/30/2023 2:43 PM EST Inhaled Oxygen Concentration - - Weight 64.9 kg (143 lb) 05/08/2025 11:24 AM EDT Height 157.5 cm (5' 2 ) 02/27/2023 11:50 AM EDT Body Mass Index 26.16 02/27/2023 11:50 AM EDT Plan of Treatment Upcoming Encounters Date Type Department Care Team (Late st Contact Info) Description 05/18/2026 11:00 AM EDT Procedure Visit [facility] [address] [facility] [facility] [place] [id number] Raghav Robbins DO [address] [facility] [place] [address] Health Maintenance Due Date Last Done Comments Influenza Vaccine (#1) 2025 Pap Smear 04/29/2027 04/29/2024, 01/11/2023 Cervical Cancer Screening 01/12/2028 HPV/Cotest 01/12/2028 Procedures Procedure Name Priority Date/Time Associated Diagnosis Comments SERUM B HCG, 3RD I.S. ([facility]) Routine 03/02/2025 11:52 AM EDT SERUM B HCG, 3RD I.S. ([facility]) Routine 02/28/2025 4:49 PM EDT PAP SMEAR Routine 04/29/2024 12:00 AM EDT from Last 3 Months or Most Recently Relevant to Health Maintenance Results * SERUM B HCG, 3RD I.S. ([facility]) (03/02/2025 11:52 AM EDT) Only the most recent of2 resultswithin the time period is included. SERUM B HCG, 3RD I.S. <5 mIU/mL [facility] Comment: WEEKS (SINCE LMP) MIU/mL 3 WEEKS 5 [...] necessarily diagnostic for trophoblastic or nontrophoblastic neoplasms. PERFORMED AT [address] [place] [address] 03/02/2025 11:5 2 AM EDT 03/02/2025 11:52 AM EDT us Raghav Robbins DO LAB BLOOD ORDERABLES Final Resul t [facility] * Pap Smear (04/29/2024 12:00 AM EDT) Swab Cervical swab / Unknown Itzel Nurse Rhonas Bcp Ob LAB CYTOLOGY ORDERABLES Final Result EXTERNAL LAB from Last 3 Months or Most Recently Relevant to Health Maintenance [place] [address] [facility] MEDICAID [place] Care Teams Geriatric Nurse Assistant Relationship Specialty Start Date End Date Raghav Robbins DO [address] [place], [place] [address]kaylee [place] [address] PCP - [facility] 06/04/24 Alex Sy MD [address] [place] [address] [place] [address] PCP - General Pediatrics 02/25/25
--- OUTSIDE RECORDS SUMMARY | 2025-05-08 15:13 | XMS_ITS | Encounter Summary ---
Author Organization [facility] Address [address] [place] [address] Care Team Providers Care Plant Utility Person Name Role Phone Kevin Perla MD Primary Care Provider [phone] Raghav Robbins DO Unavailable lAex Sy MD Primary Care Provider [phone] Encounter Details Date Type Department Care Team (Late Contact Info) Description 05/09/2024 Orders Only [facility] [address] [place] [address] Raven Son LPN [address] [facility] Carine LUQUE [facility] Social History Tobacco Use Types Packs/Day Years [...] Description 05/18/2026 11:00 AM EDT Procedure Visit [facility] [address] [place] [place] [address] Raghav Robbins DO [address] Carine Luque [facility] documented as of this encounter Procedures Procedure Name Priority Date/Time Associated Diagnosis Comments PAP SMEAR Routine 04/29/2024 12:00 AM EDT documented in this encounter Results * Pap Smear (04/29/2024 12:00 AM EDT) Swab Cervical swab / Unknown Itzel Nurse [facility] Bcp Ob LAB CYTOLOGY ORDERABLES Final Result EXTERNAL LAB documented in this encounter Visit Diagnoses Not on filedocumented in this encounter Care Teams Plant Utility Person Relationship Specialty Start Date End Date Kevin Perla MD PCP - General Family Medicine 10/20/23 02/24/25 Raghav Robbins DO [address] [place] [address] [place] [address] PCP - [facility] Marisa [employer] [facility] 06/04/24 Alex Sy MD [address] [place] [address] [place] [address] PCP - General Pediatrics 02/25/25 documented as of this encounter
--- OUTSIDE RECORDS SUMMARY | 2025-05-08 15:13 | XMS_ITS | Clinical Summary ---
Author Organization [facility] Address [address] [place] [address] Care Team Providers Care Waste Picker Name Role Phone Unavailable Primary Care Provider Unavailabl e Social History Tobacco Use Types Packs/Day Years Used Date Smoking Tobacco: Never Assessed Comments Unknown Sex and Gender Information Value Date Recorded Sex Assigned at Not on file Legal Sex Female 1:50 PM EST Gender Identity Not on file Sexual Orientation Not on file Plan of Treatment Health Maintenance Due Date Last Done Comments TETANUS 1986 HIV SCREENING DISCUSSION 2001 HEP B VACCINE (1 of 3 - 19+ 3-dose series) 2005 TDAP (ADULT) 2005 CERVICAL CANCER SCREENING DISCUSSION 2007 HPV VACCINE (1 - 3-dose SCDM series) 2013 COVID-19 VACCINE (2023-2 5 season) 2024 INFLUENZA VACCINE (#1) 2025 HEPATITIS C VIRUS SCREENING Completed 12/03, 11/08/2004 PNEUMOCOCCAL VACCINE SERIES Aged Out No longer eligible based on patient's age to complete this topic Procedures Procedure Name Priority Date/Time Associated Diagnosis Comments INFECT SERO VIRAL/MOLECULAR ARUN Routine 12/16/2004 10:00 AM EDT from Last 3 Months or Most Recently Relevant to Health Maintenance Results * INFECT SERO VIRAL/MOLECULAR ARUN (12/16/2004 10:00 AM EDT) Hep B Surf AG NEGATIVE Normal is negative CONTROL NUMBER [id number] LAB, [facility] HEP B CORE AB,TOTAL(IGG+IGM ) NEGATIVE Normal is negative CONTROL NUMBER [id number] LAB, [facility] HEP C AB NEGATIVE Normal is negative [facility], [facility] EBV Antibody to Viral Capsid Antigen IgG NEGATIVE Normal is negative CONTROL NUMBER [id number] LAB, [facility] EBV Antibody to Viral Capsid Antigen IgM NEGATIVE Normal is negative CONTROL NUMBER [id number] LAB, [facility] HSV IGG ANTIBODY NEGATIVE Normal is negative CONTROL NUMBER [id number] LAB, [facility] HSV IGM ANTIBODY NEGATIVE Normal is negative CONTROL NUMBER [id number] LAB, [facility] CMV Antibody IgG NEGATIVE Normal is negative CONTROL NUMBER [id number] LAB, [facility] CMV IgM Antibody NEGATIVE Normal is negative CONTROL NUMBER [id number] LAB, [facility] HIV-1/HIV-2 AB/p24 Antigen NONREACTIVE Normal is nonreactive CONTROL NUMBER [id number] LAB, [facility] HIV1/HCV PB NONREACTIVE Test performed by [place] [facility] [place], [place] CONTROL NUMBER [id number] LAB, [facility] HTLV-1/HTLV-2 ANTIBODY NO CONFIRMATION NONREACTIVE Normal is nonreactive CONTROL NUMBER [id number] [facility], [facility] 12/16/2004 10:0 0 AM EDT us Other Physician IMMUNOLOGY ORDERABLES Final Resu lt LAB, [facility] [address] [place] [address] from Last 3 Months or Most Recently Relevant to Health Maintenance
--- OUTSIDE RECORDS SUMMARY | 2025-05-08 15:13 | XMS_ITS | Clinical Summary ---
Author Organization [facility] Address [address] [facility] [place] [address] Care Team Providers Care Mannequin Decorator Name Role Phone Unavailable Primary Care Provider Unavailabl e Source Comments The following information is NOT included in Care Everywhere downloads:Psychiatric notes, ECG results, Cardiac Rehab notes, Pulmonary Function notes, data from SmartForms (includes but not limited toPregnancy data,audiograms, eye exams, pre-surgical evaluation notes, well-child exam data).[facility] Social History Tobacco Use Types Packs/Day Years Used Date Smoking Tobacco: Never Assessed Comments Unknown Sex and Gender Information Value Date Recorded Sex Assigned at Not on file Legal Sex Female 11:56 AM EDT Gender Identity Not on file Sexual Orientation Not on file Plan of Treatment Health Maintenance Due Date Last Done Comments Mammography (shared decision-making, age 35-39) 1986 HIV Test 2001 Hepatitis C Antibody 2004 Tdap Booster 2004 Hepatitis A (HAV) Vaccine (optional start 19+ years) 2005 Hepatitis B (HBV) Vaccine (1 of 3 - 19+ 3-dose series) 2005 Tetanus (Td or Tdap) Booster 2005 Pap Smear 2007 HPV Vaccine (optional start 27-45 years) 2013 COVID-19 Vaccine ( - 2023-2 5 season) 2025 Influenza Vaccine (#1) 2025 Shingles (RZV) Vaccine (1 of 2) 2036 Mammography Discontinued Pneumococcal Vaccine(s) Aged Out No l onger eligible based on patient's age to complete this topic
--- OUTSIDE RECORDS SUMMARY | 2025-05-08 15:13 | XMS_ITS | Encounter Summary ---
Author Organization [facility] Address [address] [place] [address] Care Team Providers Care Computer Graphic Designer Name Role Phone Raghav Robbins DO Unavailable Alex Sy MD Primary Care Provider [phone] Encounter Details Date Type Department Care Team (Late Contact Info) Description 05/08/2025 Bamboo flowsheet [facility] [address] [place] [address] Raghav Robbins DO [address] [place], [place] [address] Social History Tobacco Use Types Packs/Day Years [...] AM EDT Procedure Visit [facility] [address] [place] [address] Raghav Robbins DO [address] [place] [id number] documented as of this encounter Visit Diagnoses Not on filedocumented in this encounter Care Teams Computer Graphic Designer Relationship Specialty Start Date End Date [place] [address] PCP - [facility]emin TIRE REGROOVING MACHINE OPERATOR 06/04/24 Alex Sy MD [address] [facility] [address] [facility] [place] [address] PCP - General Pediatrics 02/25/25 documented as of this encounter
--- OUTSIDE RECORDS SUMMARY | 2025-05-08 15:13 | XMS_ITS | Patient Health Record ---
Author Organization [facility] vices Address [address] [place] [id number] Care Team Providers Care Extrusion Supervisor Name Role Phone ScottLudy villafanay Unavailable [phone] Gutierrez, Danika Unavailable [phone] CharlyPanchito marin Unavailable [phone] Allergies No Known Allergies Reason For Referral No Information Medications Medication SIG (Take, Route, Frequency, Duration) Notes Start Date End Date Status Chlorhexidine Gluconate 0.12 % swish 2x/day for 30 seconds. Spit, do not rinse. Do not eat or drink for 30 minutes. Mouth/Throat 2x/day; Duration: 30 days Not-Taking Albuterol Sulfate (2.5 MG/3ML) 0.083% USE 1 VIAL IN THE NEBULZIER 4 TIMES A DAY Inhalation; Duration: 30 Active Chlorhexidine Gluconate 0.12 % rinse mouth for 30 seconds and spit. Use after brushing and flossing. Mouth/Throat 1-2x/day; Duration: 30 days 12/26/2022 Not-Taking Symbicort Active Social History Tobacco Use: Social History Observation Description Date Details (start date - stop date) Never Smoker NA - NA Sex Assigned At : Social History Observation Description Sex Assigned At Female Tobacco Control (Standard) Question Answer Notes Tobacco use: Nonsmoker Vital Signs Heart Rate 94 /min 07/29/2024 Blood pressure diastolic 75 mm Hg 07/29/2024 Weight-kg 69.85 kg 07/29/2024 Height 60 in 07/29/2024 Blood pressure systolic 116 mm Hg 07/29/2024 Weight 154 lbs 07/29/2024 BMI 30.07 kg/m2 07/29/2024 Encounters Encounter Location Date Provider Diagnosis Dental Main [address] [place], [place] [id number] 07/29/2024 Kerrie Scott Dental caries into dentine K02.62 ; Encounter for screening for dental disorders Z13.84 ; Encounter for dental examination and cleaning with abnormal findings Z01.21 and Necrosis of pulp K04.1 Assessments Encounter Date Diagnosis (ICD Code) Assessment Notes Treatment Notes Treatment Clinical Notes Section Notes 07/29/2024 Dental caries into dentine (ICD-10 - K02.62) 07/29/2024 Encounter for screening for dental disorders (ICD-10 - Z13.84) 07/29/2024 Encounter for dental examination and cleaning with abnormal findings (ICD-10 - Z01.21) 07/29/2024 Necrosis of pulp (ICD-10 - K04.1) Plan Of Treatment No Information Insurance Providers Payer Name Payer Address Payer Phone Subscriber Number Group Number Insured Name Patient Relationship to Insured Coverage Start Date Coverage End Date wadezMan [employer] [address] [place] [address] [id number] Zimmer, Seema Self - patient is the insured 3 [facility] [address] [place] [address] [id number] Zimmer, Seema Self - patient is the insured 3 [employer] [facility] [place] [address] [place], [place] [id number] Zimmer, Seema Self - patient is the insured 3 Medicaid [facility] after [place] [address] [place] [address] [id number] Zimmer, Seema Self - patient is the insured 3
--- OUTSIDE RECORDS SUMMARY | 2025-05-08 15:13 | XMS_ITS | Encounter Summary ---
Author Organization [facility] Address [address] [place] [address] Care Team Providers Care Core Loader Name Role Phone Kevin Perla MD Primary Care Provider [phone] Raghav Robbins DO Unavailable Alex Sy MD Primary Care Provider [phone] Reason for Visit * Reason Comments Med Refill Encounter Details Date Type Department Care Team (Late st Contact Info) Description 02/27/2024 Refill [facility] Ruchi Troncoso PA [address] [place], [place] [id number] Recurrent genital herpes Social History Tobacco Use Types Packs/Day Years Used Date Smoking Tobacco: Never Comments No Sex and Gender Information Value Date Recorded Sex Assigned at Not on file Legal Sex Female 11:47 PM EDT Gender Identity Not on file Sexual Orientation Not on file documented as of this encounter Plan of Treatment Upcoming Encounters Date Type Department Care Team (Late Contact Info) Description 05/18/2026 11:00 AM EDT Procedure Visit [facility] [address] [facility] [place] [address] Raghav Robbins DO [address] [facility] [place] [address] documented as of this encounter Visit Diagnoses Diagnosis Recurrent genital herpes Unspecified genital herpes documented in this encounter Care Teams Core Loader Relationship Specialty Start Date End Date Kevin Perla MD PCP - General Family Medicine 10/20/23 02/24/25 Raghav Robbins DO [address] [place] [address] [place] [address] PCP - [facility] 06/04/24 Alex Sy MD [address] [place] [address] [place] [address] PCP - General Pediatrics 02/25/25 documented as of this encounter
--- OUTSIDE RECORDS SUMMARY | 2025-05-08 16:01 | XMS_ITS | CCD ---
Author Organization [facility] Care Team Providers Care Delicatessen Manager Name Role Phone ITZEL ., DR GUADALUPE Admitting Unavailable ITZEL ., DR GUADALUPE Attending Unavailable ITZEL ., DR GUADALUPE Primary Care Unavailable RUCHI GHOTRA Admitting Unavailable RUCHI GHOTRA Attending Unavailable ITZEL ., DR GUADALUPE Primary Care Unavailable RUCHI GHOTRA Consulting Unavailable Jordy Gamboa Attending Unavailab Jordy Tomas Admitting Unavailab le NON STAFF Primary Care Unavailable Kevin Gonzalez MD Primary Care Provider [phone] MIRYAM MCGOWAN Attending Unavailable KEVIN GONZALEZ Referring Unavailable NO PCP, NO PCP Primary Care Unavailable No Pcp, No Pcp Primary Care Provider UnavailAnayeli Gustafson DO Unavailable RUCHI SERNA Attending Unavailable KEVIN GONZALEZ Attending Unavailable ANAYELI ROBBINS Attending Unavailable ANAYELI ROBBINS Attending Unavailable RUCHI SERNA Attending Unavailable Rajni Bhat DO Primary Care Provider RAJNI BHAT Attending Unavailable NO PCP, NO PCP Primary Care Unavailable RAJNI BHAT Attending Unavailable RAJNI BHAT Referring Unavailable RAJNI BHAT Primary Care Unavailable Rajni Bhat MD Primary Care Provider RAJNI BHAT Primary Care Unavailable NAVEED ELIZALDE Attending Unavailable ANAYELI ROBBINS Referring Unavailable RAJNI BHAT Primary Care Unavailable ANAYELI ROBBINS Referring Unavailable RAJNI BHAT Primary Care Unavailable Medications Current Medications Medication Drug Class(es) Dates Sig (Normalized) Sig (Original) acyclovir 400 mg oral tablet (11 sources) Herpesvirus Nucleoside Analog DNA Polymerase Inhibitor, Herpes Simplex Virus Nucleoside Analog DNA Polymerase Inhibitor, Herpes Zoster Virus Nucleoside Analog DNA Polymerase Inhibitor Start: 01-24-2024 take 1 tablet by mouth twice daily acyclovir (Zovirax) 400 MG tablet Indications: Recurrent genital herpes TAKE 1 TABLET BY MOUTH TWICE A DAY FOR 30 DAYS 60 tablet 3 01/24/2024 Active albuterol 0.83 mg/ml inhalation solution (20 sources) beta2-Adrenergic Agonist Start: 11-24-2023 albuterol (2.5 MG/3ML) 0.083% nebulizer solution Indications: Severe persistent asthma, uncomplicated (HCC) , Asthma (HCC) INHALE 1 NEBULE FOUR TIMES DAILY 150 mL 5 11/24/2023 Active Start: 02-05-2020 take 3 mL by inhalat ion every six hours as needed for wheezing albuterol (PROVENTIL,VENTOLIN) 2.5 mg /3 mL (0.083 %) nebulizer solution Indications: Mild intermittent asthma without complication Inhale 3 mL (2.5 mg total) by nebulization every 6 (six) hours as needed for wheezing. 75 mL 02/05/2020 Active Start: 11-18-2019 take 3 mL by inhalat ion every four hours as needed for wheezing albuterol (PROVENTIL,VENTOLIN) 2.5 mg /3 mL (0.083 %) nebulizer solution Indications: Severe persistent asthma with exacerbation (CMS-HCC) , Moderate asthma with acute exacerbation, unspecified whether persistent Inhale 3 mL (2.5 mg total) by nebulization every 4 (four) hours as needed for wheezing. 75 mL 5 11/18/2019 Active take 1 puff(s) by in halation every six hours as needed albuterol HFA 90 mcg/act inhaler INHALE 1 PUFF EVERY 6 HOURS NEEDED Active take 2 puff(s) by in halation every six hours as needed for wheezing albuterol (PROVENTIL HFA;VENTOLIN HFA) 90 mcg/actuation inhaler Inhale 2 puffs every 6 (six) hours as needed for wheezing. Active 60 actuat budesonide 0.16 mg/actuat / formoterol fumarate 0.0045 mg/actuat metered dose inhaler (14 sources) Corticosteroid, beta2-Adrenergic Agonist Start: 02-07-2024 take 2 puff(s) by mouth twice daily Symbicort 160-4.5 MCG/ACT inhaler Indications: Moderate persistent asthma without complication (HCC) INHALE 2 PUFFS BY MOUTH TWICE A DAY. RINSE MOUTH AFTER USE 10.2 each 3 02/07/2024 Active End: 01-14-2025 take 2 puff(s) by inhalation in the morning budesonide-formoterol (SYMBICORT) 160-4.5 mcg/actuation inhaler Inhale 2 puffs in the morning and 2 puffs before bedtime. 01/14/2025 Discontinued (Alternate therapy) take 2 puff(s) by in halation in the morning budesonide-formoterol (SYMBICORT) 160-4.5 mcg/actuation inhaler Inhale 2 puffs in the morning and 2 puffs before bedtime. Active 120 actuat budesonide 0.16 mg/actuat / formoterol fumarate 0.0048 mg/actuat / glycopyrrolate 0.009 mg/actuat metered dose inhaler (2 sources) Corticosteroid, beta2-Adrenergic Agonist Start: 01-14-2025 take 2 puff(s) by inhalation in the morning jirkefkurq-lfxzmdzo-ukypziyjpr 160-9-4.8 mcg/actuation HFA aerosol inhaler Indications: Severe persistent asthma with acute exacerbation (CMS-HCC) Inhale 2 puffs in the morning and 2 puffs before bedtime. Lot [id number] Exp 2027-05. 5.9 g 01/14/2025 Active cetirizine hydrochloride 10 mg oral tablet (11 sources) Histamine-1 Receptor Antagonist cetirizine (ZyrTEC) 10 MG tablet 1 (one) time each day at the same time. Active escitalopram 10 mg oral tablet (4 sources) Serotonin Reuptake Inhibitor Start: 12-03-2024 End: 02-03-2025 take 1 tablet by mouth in the morning escitalopram (LEXAPRO) 10 mg tablet Indications: Generalized anxiety disorder TAKE 1 TABLET (10 MG TOTAL) BY MOUTH IN THE MORNING 30 tablet 1 02/03/2025 Active FLUoxetine 20 mg oral capsule (11 sources) Serotonin Reuptake Inhibitor Start: 03-26-2024 take 1 capsule by mouth once daily FLUoxetine (PROzac) 20 MG capsule Indications: JASON (generalized anxiety disorder) TAKE 1 CAPSULE BY MOUTH EVERY DAY 30 capsule 2 03/26/2024 Active hydrOXYzine pamoate 25 mg oral capsule (14 sources) Antihistamine Start: 12-03-2024 take 1 capsule by mouth once daily as needed for anxiety hydrOXYzine (VISTARIL) 25 mg capsule Indications: Generalized anxiety disorder Take 1 capsule (25 mg total) by mouth daily as needed for anxiety. 20 capsule 12/03/2024 Active Start: 10-30-2023 take 1 tablet by sunny th four times daily as needed for anxiety hydrOXYzine HCl (Atarax) 25 MG tablet Indications: JASON (generalized anxiety disorder) Take 1 tablet (25 mg) by mouth 4 (four) times a day as needed for anxiety 60 tablet 2 10/30/2023 Active montelukast 10 mg oral tablet (11 sources) Leukotriene Receptor Antagonist End: 05-08-2025 montelukast (Singulair) 10 MG tablet montelukast 10 mg tablet 05/08/2025 Discontinued predniSONE 20 mg oral tablet (1 source) Start: 12-03-2024 End: 12-08-2024 take 1 tablet by mouth in the morning predniSONE (DELTASONE) 20 mg tablet Indications: Mild intermittent asthma with acute exacerbation Take 1 tablet (20 mg total) by mouth in the morning for 5 days. 5 tablet 12/03/2024 12/08/2024 Active valACYclovir 1000 mg oral tablet (4 sources) Herpesvirus Nucleoside Analog DNA Polymerase Inhibitor, Herpes Simplex Virus Nucleoside Analog DNA Polymerase Inhibitor, Herpes Zoster Virus Nucleoside Analog DNA Polymerase Inhibitor Start: 10-23-2024 End: 11-02-2024 take 1 tablet by mouth in the morning valACYclovir (Valtrex) 1 g tablet Indications: Herpes, vulvovaginitis Take 1 tablet (1,000 mg) by mouth in the morning and 1 tablet (1,000 mg) before bedtime. Do all this for 10 days. 20 tablet 1 10/23/2024 11/02/2024 Active Start: 10-23-2024 End: 10-23-2024 take 1 tablet by mouth once daily valACYclovir (Valtrex) 500 MG tablet Indications: Herpes, vulvovaginitis Take 1 tablet (500 mg) by mouth Daily 30 tablet 11 10/23/2024 10/23/2024 Discontinued (Other) Completed/Discontinued Medications Medication Drug Class(es) Dates Sig (Normalized) Sig (Original) betamethasone 0.5 mg/ml / clotrimazole 10 mg/ml topical cream (3 sources) Azole Antifungal, Corticosteroid Start: 11-02-2023 End: 04-29-2024 clotrimazole-betame thasone (Lotrisone) cream Indications: Vaginal discharge , Yeast infection Apply 1 application topically Daily Apply to affected area daily for 7 days 45 g 11/02/2023 04/29/2024 Discontinued (Other) cyclobenzaprine hydrochloride 10 mg oral tablet (2 sources) Muscle Relaxant Start: 03-01-2024 End: 12-03-2024 take 1 tablet by mouth twice daily as needed for muscle spasms cyclobenzaprine (FLEXERIL) 10 mg tablet Take 1 tablet (10 mg total) by mouth 2 (two) times a day as needed for muscle spasms. 10 tablet 03/01/2024 12/03/2024 Discontinued ethinyl estradiol 0.035 mg / norgestimate 0.25 mg oral tablet (2 sources) Progestin, Estrogen End: 04-29-2024 take 1 tablet by mouth once daily norgestimate-ethiny l estradiol (Sprintec 28) 0.25-35 MG-MCG tablet Take 1 tablet by mouth Daily 04/29/2024 Discontinued (Other) ibuprofen 800 mg oral tablet (2 sources) Nonsteroidal Anti-inflammatory Drug Start: 02-05-2023 End: 12-03-2024 take 1 tablet by mouth every six hours as needed for pain ibuprofen (MOTRIN) 800 mg tablet Take 1 tablet (800 mg total) by mouth every 6 (six) hours as needed for pain. 30 tablet 02/05/2023 12/03/2024 Discontinued lidocaine 0.05 mg/mg medicated patch (2 sources) Antiarrhythmic, Amide Local Anesthetic Start: 03-01-2024 End: 12-03-2024 apply 1 dose transdermal route once daily, then apply 1 dose transdermal route every twelve hours lidocaine (LIDODERM) 5 % Place 1 patch on the skin daily. Remove & Discard patch within 12 hours or as directed by 30 patch 03/01/2024 12/03/2024 Discontinued Problems Active Problems Problem Classification Problem Date Documented Da te Episodic/Chronic Anxiety disorders (18 sources) Generalized anxiety disorder; Translations: [Generalized anxiety disorder] Onset: 10-30-2023 10-30-2023 Chronic Asthma (20 sources) Uncomplicated moderate persistent asthma; Translations: [Moderate persistent asthma, uncomplicated] Onset: 07-16-2018 10-30-2023 Chronic Blindness and vision defects (3 sources) Hypermetropia, bilateral; Translations: [Unspecified astigmatism, bilateral] Onset: 10-21-2024 10-21-2024 Episodic Late effects of cerebrovascular disease (15 sources) Right hemiparesis; Translations: [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] Onset: 04-18-2019 10-30-2023 Chronic Other and delivery including normal (1 source) Encounter for test, result positive; Translations: [Encounter for test, result positive] Onset: 02-28-2025 Episodic Other screening for suspected conditions (not mental disorders or infectious disease) (4 sources) Encounter for screening for malignant neoplasm of cervix; Translations: [ENC SCREENING MALIG NEOPLASM CERV] Onset: 01-11-2023 Episodic Other skin disorders (2 sources) Eruption; Translations: [Rash and other nonspecific skin eruption] 10-23-2024 Episodic Other upper respiratory disease (11 sources) Allergic rhinitis due to pollen; Translations: [Allergic rhinitis due to pollen] Onset: 10-30-2023 10-30-2023 Chronic Spondylosis; intervertebral disc disorders; other back problems (3 sources) Dorsalgia, unspecified; Translations: [Backache] Onset: 02-24-2025 Episodic Unclassified (1 source) Eye Exam Onset: 10-21-2024 Unclassified (1 source) Establish Care Onset: 12-03-2024 Unclassified (1 source) Low back pain, unspecified; Translations: [Low back pain, unspecified] Onset: 02-24-2025 Viral infection (2 sources) Herpetic vulvovaginitis; 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] 10-23-2024 Chronic Past or Other Problems Problem Classification Problem Date Documented Date Episodic/Chronic Hypertension complicating ; childbirth and the puerperium (4 sources) Hypertension AND/OR vomiting complicating childbirth AND/OR puerperium; Translations: [Gestational [-induced] hypertension without significant proteinuria, third trimester] Onset: 04-18-2019 Resolved: 01-14-2025 04-18-2019 Episodic Immunizations and screening for infectious disease (14 sources) Encounter for screening for human papillomavirus (HPV); Translations: [Exposure to sexually transmissible disorder] Onset: 01-14-2023 11-02-2023 Episodic Mood disorders (4 sources) Mood disorders Onset: 07-16-2018 Resolved: 01-14-2025 07-16-2018 Mycoses (11 sources) Mycosis; Translations: [Candidiasis, unspecified] Onset: 11-02-2023 11-02-2023 Episodic Other complications of (4 sources) H/O: premature delivery; Translations: [Supervision of other high risk pregnancies, unspecified trimester] Onset: 03-02-2019 03-02-2019 Episodic Other complications of (4 sources) Asthma; Translations: [Diseases of the respiratory system complicating , unspecified trimester] Onset: 04-11-2019 Resolved: 01-14-2025 04-11-2019 Episodic Other complications of (4 sources) Asthma in ; Translations: [Diseases of the respiratory system complicating , third trimester] Onset: 04-18-2019 Resolved: 01-14-2025 04-18-2019 Episodic Other female genital disorders (13 sources) Vaginal discharge; Translations: [Other specified noninflammatory disorders of vagina] Onset: 11-02-2023 11-02-2023 Episodic Other infections; including parasitic (4 sources) History of sexually transmitted disease; Translations: [Personal history of other infectious and parasitic diseases] Onset: 04-18-2019 04-18-2019 Episodic Results Test Name Value Interpretation Reference Range Facil ity HCG-BETA, SERUMon 03-02-2025 SERUM B HCG,3RD I.S. <^5 Normal [facility] Comment on above: Order Comment: WEEKS (SINCE LMP) MIU/mL3 WEEKS 5 - 504 WEEKS 5 - 4265 WEEKS 18 - 7,3406 WEEKS 1,080 - 56,5007-8 WEEKS 7,650 - 229,0009-12 WEEKS 25,700 - 288,65849-19 WEEKS 13,300 - 254,64688-30 WEEKS 4,060 - 165,85834-99 WEEKS 3,640 - 117,000MALES AND NON- FEMALES - <5 MIU/mLThis test has been FDA approved for use inpregnancy only. Elevated levels are notnecessarily diagnostic for trophoblasticor nontrophoblastic neoplasms. -- Performed By: #### C MP #### [facility] (COUNT INCLUDES THE [facility]) [address] [place] [address]. [place] [address] VIR HCG-BETA, SERUMon 02-28-2025 SERUM B HCG,3RD I.S. <^5 Normal [facility] Comment on above: Order Comment: WEEKS (SINCE LMP) MIU/mL3 WEEKS 5 - 504 WEEKS 5 - 4265 WEEKS 18 - 7,3406 WEEKS 1,080 - 56,5007-8 WEEKS 7,650 - 229,0009-12 WEEKS 25,700 - 288,46878-49 WEEKS 13,300 - 254,24560-53 WEEKS 4,060 - 165,76970-32 WEEKS 3,640 - 117,000MALES AND NON- FEMALES - <5 MIU/mLThis test has been FDA approved for use inpregnancy only. Elevated levels are notnecessarily diagnostic for trophoblasticor nontrophoblastic neoplasms. -- Performed By: #### C MP #### [facility] (COUNT INCLUDES THE [facility]) [address] [place] [address]. [place] [address] VIR SERUM B HCG, 3RD I.S. (PROME DICA)on 02-28-2025 HCG.beta subunit Qn m[IU]/mL mIU/mL [facility] Comment on above: WEEKS (SINCE LMP) CO U/mL 3 WEEKS 5 - 50 4 WEEKS [...] for trophoblastic or nontrophoblastic neoplasms. PERFORMED AT [facility] [address],[place] [address] [facility] CBC WITH AUTO DIFFERENTIALon 02-24-2025 BASOPHILS ABSOLUTE COUNT (10*3/UL) BY AUTOMATED COUNT 0.0 10*3/uL Normal 0.0-0.2 [facility] Comment on above: Performed By: #### C BCA #### [facility] ([address] [address] VIR BASOPHILS RELATIVE PERCENT BY AUTOMATED COUNT 0.3 % Normal [facility] Comment on above: Performed By: #### C BCA #### [facility] ([address] [address] VIR CELLAVISION DIFFERENTIAL TYPE AUTOMATED DIFFERENTIAL Normal [facility] Comment on above: Performed By: #### C BCA #### [facility] ([address] [address] VIR Eosinophils (Bld) [#/Vol] 0.0 10*3/uL Normal 0.0-0.4 [facility] Comment on above: Performed By: #### C BCA #### [facility] ([address] [address] VIR EOSINOPHILS RELATIVE PERCENT BY AUTOMATED COUNT 0.3 % Normal [facility] Comment on above: Performed By: #### C BCA #### [facility] ([address] [address] VIR Erythrocyte distribution width (RBC) [Ratio] 17.7 % High 11.5-15 [facility] Comment on above: Performed By: #### C BCA #### [facility] ([address] [address] VIR Hematocrit (Bld) [Volume fraction] 36.1 % Normal 35-47 [facility] Comment on above: Performed By: #### C BCA #### [facility] ([address] [address] VIR Hemoglobin (Bld) [Mass/Vol] 11.4 g/dL Low 11.7-15.5 [facility] Comment on above: Performed By: #### C BCA #### [facility] ([address] [address] VIR LYMPHOCYTES ABSOLUTE COUNT (10*3/UL) BY AUTOMATED COUNT 1.6 10*3/uL Normal 1.0-3.5 [facility] Comment on above: Performed By: #### C BCA #### [facility] ([address] [address] VIR LYMPHOCYTES RELATIVE PERCENT BY AUTOMATED COUNT 26.6 % Normal [facility] Comment on above: Performed By: #### C BCA #### [facility] ([address] [address] VIR MCH (RBC) [Entitic mass] 23.2 pg Low 27-34 [facility] Comment on above: Performed By: #### C BCA #### [facility] ([address] [address] VIR MCHC (RBC) [Mass/Vol] 31.7 g/dL Low 32-36 [facility] Comment on above: Performed By: #### C BCA #### [facility] ([address] [address] VIR MCV (RBC) [Entitic vol] 73 fL Low 80-100 [facility] Comment on above: Performed By: #### C BCA #### [facility] ([address] [address] VIR MONOCYTES ABSOLUTE COUNT (10*3/UL) BY AUTOMATED COUNT 0.5 10*3/uL Normal 0.0-0.9 [facility] Comment on above: Performed By: #### C BCA #### [facility] ([address] [address] VIR MONOCYTES RELATIVE PERCENT BY AUTOMATED COUNT 7.9 % Normal [facility] Comment on above: Performed By: #### C BCA #### [facility] ([address] [address] VIR NEUTROPHILS ABSOLUTE COUNT BY AUTOMATED COUNT 3.9 10*3/uL Normal 1.5-6.6 [facility] Comment on above: Performed By: #### C BCA #### [facility] ([address] [address] VIR NEUTROPHILS RELATIVE PERCENT BY AUTOMATED COUNT 64.9 % Normal [facility] Comment on above: Performed By: #### C BCA #### [facility] ([address] [address] VIR Platelet mean volume (Bld) [Entitic vol] 7.5 fL Normal 7-12 [facility] Comment on above: Performed By: #### C BCA #### [facility] ([address] [address] VIR Platelets (Bld) [#/Vol] 316 10*3/uL Normal 150-450 [facility] Comment on above: Performed By: #### C BCA #### [facility] ([address] [address] VIR RBC COUNT 4.92 X10E12/L Normal 3.8-5.2 [facility] Comment on above: Performed By: #### C BCA #### [facility] (COUNT INCLUDES THE [facility]) [address] [place] [address] VIR WBC (Bld) [#/Vol] 6.0 10*3/uL Normal 4-11 [facility] Comment on above: Performed By: #### C BCA #### [facility] ([address] [place] [address] VIR COMPREHENSIVE METABOLIC PANE Esteban 02-24-2025 Albumin [Mass/Vol] 4.1 g/dL Normal 3.2-5.3 [facility] Comment on above: Performed By: #### C MP #### [facility] (COUNT INCLUDES THE [facility]) [facility] [place] [address] VIR ALP [Catalytic activity/Vol] 98 U/L Normal 39-130 [facility] Comment on above: Performed By: #### C MP #### [facility] ([address] [place] [address] VIR ALT [Catalytic activity/Vol] 22 U/L Normal <=31 [facility] Comment on above: Performed By: #### C MP #### [facility] ([address] [place] [address] VIR Anion gap [Moles/Vol] 10 mmol/L Normal 5-15 [facility] Comment on above: Performed By: #### C MP #### [facility] ([address] [place] [address] VIR AST [Catalytic activity/Vol] 29 U/L Normal <=41 [facility] Comment on above: Performed By: #### C MP #### [facility] ([place] [address] [place] [address] VIR Bilirubin [Mass/Vol] 1.3 mg/dL High 0.3-1.2 [facility] Comment on above: Performed By: #### C MP #### [facility] ([address] [place] [address] VIR Calcium [Mass/Vol] 9.5 mg/dL Normal 8.5-10.5 [facility] Comment on above: Performed By: #### C MP #### [facility] ([address] [place] [address] VIR Chloride [Moles/Vol] 103 mmol/L Normal 98-109 [facility] Comment on above: Performed By: #### C MP #### [facility] ([address] [place] [address] VIR CO2 [Moles/Vol] 26 mmol/L Normal 22-32 [facility] Comment on above: Performed By: #### C MP #### [facility] ([address] [place] [address] VIR Creatinine [Mass/Vol] 0.58 mg/dL Normal 0.40-1.00 [facility] Comment on above: Result Comment: METH OD TRACEABLE TO IDMS STANDARD Performed By: #### C MP #### [facility] ([address] [place] [address] VIR EGFR (CKD-EPI) NON-RACE DEPENDENT >^90 Normal >=60 [facility] Comment on above: Result Comment: eGFR not reported due to non-numeric value for Creatinine. Reported eGFR is based on the CKD-EPI 2021 equation that does not use a race coefficient. Performed By: #### C MP #### [facility] ([address] [place] [address] VIR Glucose [Mass/Vol] 104 mg/dL High 65-99 [facility] Comment on above: Performed By: #### C MP #### [facility] ([address] [place] [address] VIR Potassium [Moles/Vol] 4.6 mmol/L Normal 3.5-5.0 [facility] Comment on above: Performed By: #### C MP #### [facility] ([facility]ES [facility]) [address] [place] [address] [place] [address] VIR Protein [Mass/Vol] 8.6 g/dL High 6.0-8.0 [facility] Comment on above: Performed By: #### C MP #### [facility] ([address] [place] [address] VIR Sodium [Moles/Vol] 139 mmol/L Normal 134-146 [facility] Comment on above: Performed By: #### C MP #### [facility] ([address] [place] [address] VIR Urea nitrogen [Mass/Vol] 16 mg/dL Normal 5-23 [facility] Comment on above: Performed By: #### C MP #### [facility] ([address] [place] [address] ABDOMEN AND PELVIS WO CON Ton 02-24-2025 CT ABDOMEN AND PELVIS WO CONT CT ABDOMEN AND PELVIS WO CONT EXAM: ABDOMEN AND PELVIS CT WITHOUT CONTRAST [...] Dereck Dukes MD on 02/24/2025 2:11 PM Normal [facility] D-DIMERon 02-24-2025 D DIMER <^150 Normal 1-255 [facility] Comment on above: Result Comment: Resu lts <255 ng/mL DDU: The presensence of a VTE can safely be excluded with a negative D-Dimer result and Wells score. A negative result doesn't exclude the possibility of DIC. The test should be repeated along with other diagnostic tests if the patient's symptoms persist or worsen. Performed By: #### D DMR #### [facility] ([address] [place] [address] VIR POCT NURSING URINE MACROSCOP IC UAon 02-24-2025 BILIRUBIN EDEN Negative Normal Negative [facility] Comment on above: Performed By: #### N UM #### [facility] ([address] [place] [address] VIR BLOOD/HGB EDEN Trace Abnormal Negative [facility] Comment on above: Performed By: #### N UM #### [facility] ([address] [place] [address] VIR GLUCOSE EDEN Negative Normal Negative [facility] Comment on above: Performed By: #### N UM #### [facility] ([address] [place] [address] VIR KETONES EDEN Negative Normal Negative [facility] Comment on above: Performed By: #### N UM #### [facility] ([address] [place] [address] VIR LEUKOCYTE ESTERASE EDEN Negative Normal Negative [facility] Comment on above: Performed By: #### N UM #### [facility] ([address] [place] [address] VIR NITRITE EDEN Negative Normal Negative [facility] Comment on above: Performed By: #### N UM #### [facility] ([address] [place] [address] VIR PH EDEN 5.5 Normal 5.0, 6.0, 6.5, 7.0, 7.5, 8.0, 8.5, 5.5 [facility] Comment on above: Performed By: #### N UM #### [facility] ([address] [address] VIR PROTEIN EDEN Negative Normal Negative [facility] Comment on above: Performed By: #### N UM #### [facility] ([address] [address] VIR SPECIFIC GRAVITY EDEN 1.025 Normal 1.010, 1.015, 1.020, 1.025 [facility] Comment on above: Performed By: #### N UM #### [facility] ([address] [address] VIR UROBILINOGEN EDEN 0.2 E.U./dL Normal [facility] Comment on above: Performed By: #### N UM #### [facility] ([address] [address] VIR POCT , URINE (NUCG) on 02-24-2025 Beta HCG ( test) Ql (U) Negative Normal Negative, Indeterminate [facility] Comment on above: Performed By: #### N UCG #### [facility] ([address] [address] VIR TROP I, HIGH SENSITIVITY 1 H OURon 02-24-2025 TROPONIN I, HIGH SENSITIVITY <^2 Normal <16 [facility] Comment on above: Performed By: #### T NIHS1 #### [facility] ([address] [place] [address] VIR TROPONIN I, HIGH SENSITIVITY 0 HOURon 02-24-2025 TROPONIN I, HIGH SENSITIVITY <^2 Normal <16 [facility] Comment on above: Performed By: #### T NIHS0 #### [facility] (COUNT INCLUDES THE [facility]) [address] [place] [address] VIR URINE CULTUREon 02-24-2025 Bacteria identified Cx Nom (U) CULTURE RESULTS <10,000 ORGANISMS/mL NORMAL URO GENITAL CHUCK Normal [facility] Comment on above: Performed By: #### U C #### [facility] ([facility]) [address] [place] [address] VIR XR CHEST 1 VWon 02-24-2025 XR CHEST 1 VW XR CHEST 1 VW XR CHEST 1 VW 02/24/2025 1:40 PM INDICATION: Shortness of breath/Cough eval for pneumonia/acute abnormalities COMPARISON: 06/04/2023 TECHNIQUE: PA view of the chest was obtained FINDINGS: The lungs are clear. There is no pneumothorax. There is no pleural effusion. The cardiomediastinal silhouette is unremarkable. No acute osseous abnormalities. IMPRESSION: No acute cardiopulmonary process. Finalized by Rajni Dill on 02/24/2025 1:46 PM Normal [facility] IGP,APTIMA HPV,AGE GDLNon AGE GDLN ACOG TESTING Note . [facility] Comment on above: TESTS RESULT FLAG UN ITS REF RANGE LAB Clinician Provided Cytology Information Source.............Cervix;Endocervix No. of containers..01 ThinPrep Vial Age Algo ACOG Christal... FLAG LEGEND: L-Low Normal,H-High Normal,LL-Alert Low,HH-Alert High <-Panic Low,>-Panic High,A-Abnormal,AA-Critical Abnormal Performed at: 01 =[address] [address] Jayshree Conner MD, HPV APTIMA Negative Negative [facility] Comment on above: This nucleic acid am plification test detects fourteen high- risk HPV types (16,18,31,33,35,39,45,51,52,56,58,59,66,68) without differentiation. Performed at: =[address] [id number] Manager Of Network: Jayshree Conner MD, Phone: [phone] Performed at: [address] [id number] Manager Of Network: Jayshree Conner MD, Phone: [phone] IGP, APTIMA HPV, RFX 16/18,45 Note . [facility] Comment on above: TESTS RESULT FLAG UN ITS REF RANGE LAB DIAGNOSIS: 02 NEGATIVE FOR INTRAEPITHELIAL LESION OR MALIGNANCY. Specimen adequacy: 02 Satisfactory for evaluation. No endocervical component is identified. Performed by: Nito Rausch, Manager Support ([facility]) . 02 Note: Note 02 The Pap smear is a screening test designed to aid in the detection of premalignant and malignant conditions of the uterine cervix. It is not a diagnostic procedure and should not be used as the sole means of detecting cervical cancer. Both false-positive and false-negative reports do occur. Test Methodology: Note 02 This liquid based ThinPrep(R) pap test was screened with the use of an image guided system. HPV Genotype Reflex Note 02 Criteria not met, HPV Genotype not performed. FLAG LEGEND: L-Low Normal,H-High Normal,LL-Alert Low,HH-Alert High <-Panic Low,>-Panic High,A-Abnormal,AA-Critical Abnormal Performed at: [address] [facility] [address] [address] Jayshree Conner MD, BRUSH-SPATULA CERVIX [facility] [place] HAND RIGHT 3 [facility] 0 HAND RIGHT 3 [facility] Department of Radiology [address] [place] [id number] Patient Name: SEEMA WALKER : 1985 Sex: F Age: Race: Black Pt. Location: 85 Patient Status: O Ordered Date: 01/17/2020 10:30:00 AM Completed Date: 01/17/2020 10:29 AM Requesting Provider: HA WALLACE Attending Provider: HA WALLACE Report Copy To: SELF, REFERRED Signs & Symptoms: M79.641 Pain in right hand I10 History: Comments: evaluate Exam: HAND RIGHT 3 [facility] HAND RIGHT 3 VWS 01/17/2020 10:29 AM CLINICAL INDICATIONS: M79.641 Pain in right hand I10 TECHNOLOGIST COMMENTS: pain 2nd digit right hand x 2 weeks patient states extra bone in 2nd digit QUESTION FOR THE RADIOLOGIST: evaluate PROTOCOL: AP,Lateral and Oblique views were obtained. COMPARISON: None FINDINGS: No acute fractures or dislocations. No soft tissue swelling. Sclerotic focus in the second metacarpal head. Joint spaces are intact. IMPRESSION: No acute osseous abnormality. Approved by:Alonso Mckeon01/17/2020 10:42 AM. I, Chapo Aponte,have reviewed the images and reports Electronically signed: Chapo Aponte. Transcribed by: [email or web address], User Resident: ALONSO BAKER Electronically Signed by: CHAPO APONTE @ 01/17/2020 11:59 AM I personally read this/these film(s) with this resident Normal [facility] Comment on above: Order Comment: evalu ate Vital Signs Date Time Vital Sign Value Performing Clinician Facility 05-08-2025 11:24-0400 Body mass index (BMI) [Ratio] 26.16 kg/m2 Anayeli Itzel DO Work Phone: [facility] 05-08-2025 11:24-040 Body weight 64.86 kg Anayeli Itzel DO Work Phone: [facility] 05-08-2025 11:24-0400 Diastolic blood pressure 62 mm[Hg] Anayeli Itzel DO Work Phone: [facility] 05-08-2025 11:24-0400 Systolic blood pressure 110 mm[Hg] Anayeli Itzel DO Work Phone: [facility] 01-14-2025 15:11-0400 Body mass index (BMI) [Ratio] 28.44 kg/m2 Rajni Bhat DO Work Phone: [facility] [employer] [facility] 01-14-2025 15:11-0400 Body temperature 98.4 [degF] [facility] 01-14-2025 15:11-0400 Body weight 66.04 kg Rajni Bhat DO Work Phone: [facility] [employer] 01-14-2025 15:11-0400 Diastolic blood pressure 70 mm[Hg] Rajni Bhat DO Work Phone: [facility] [employer] 01-14-2025 15:11-0400 Heart rate 84 /min Rajni Bhat DO Work Phone: [facility] [employer] 01-14-2025 15:11-0400 SaO2% (BldA) [Mass fraction] 97 % Rajni Bhat DO Work Phone: [facility] [employer] 01-14-2025 15:11-0400 Systolic blood pressure 130 mm[Hg] Rajni Bhat DO Work Phone: [facility] [employer] [facility] 12-03-2024 14:03-0400 Body height 152.4 cm Rajni Bhat DO Work Phone: [facility] [employer] 12-03-2024 14:03-0400 Body mass index (BMI) [Ratio] 29.26 kg/m2 Rajni Bhat DO Work Phone: [facility] [employer] [facility] 12-03-2024 14:03-0400 Body temperature 97.39 [degF] Rajni Bhat DO Work Phone: [facility] [employer] [facility] 12-03-2024 14:03-0400 Body weight 67.95 kg Rajni Bhat DO [facility] 12-03-2024 14:03-0400 Diastolic blood pressure 80 mm[Hg] Rajni Bhat DO [facility] 12-03-2024 14:03-0400 Heart rate 77 /min Rajni Bhat DO [facility] 12-03-2024 14:03-0400 SaO2% (BldA) [Mass fraction] 96 % Rajni Badik DO Work Phone: [facility] 12-03-2024 14:03-0400 Systolic blood pressure 112 mm[Hg] Rajni Bhat DO Work Phone: [facility] 10-23-2024 14:28-0500 Body mass index (BMI) [Ratio] 27.62 kg/m2 Ruchi Olga PA Work Phone: [facility] 10-23-2024 14:28-0500 Body weight 68.49 kg Ruchi [place] PA Work Phone: [facility] 10-23-2024 14:28-0500 Diastolic blood pressure 70 mm[Hg] Ruchi Olga PA Work Phone: [facility] 10-23-2024 14:28-0500 Systolic blood pressure 118 mm[Hg] Ruchi [place] PA Work Phone: [facility] 04-29-2024 11:33-0400 Body mass index (BMI) [Ratio] 27.76 kg/m2 Ruchi [place] PA Work Phone: [facility] 04-29-2024 11:33-0400 Body weight 68.86 kg Ruchi [place] PA Work Phone: [facility] 04-29-2024 11:33-0400 Diastolic blood pressure 72 mm[Hg] Ruchi Olga PA Work Phone: [facility] 04-29-2024 11:33-0400 Systolic blood pressure 118 mm[Hg] Ruchi Olga PA Work Phone: [facility] Healthcare Encounters Encounter Date Encounter Type Care Provider Facility Start: 05-08-2025 End: 05-08-2025 Bamboo flowsheet Anayeli Itzel DO Work Phone: [facility] Start: 05-08-2025 End: 05-08-2025 Bamboo flowsheet Anayeli Itzel DO Work Phone: [facility] Start: 05-08-2025 End: 05-08-2025 Patient encounter procedure Anayeli Itzel DO Work Phone: [facility] Work Phone: Start: 05-08-2025 End: 05-08-2025 Periodic preventive med est patient 18-39 yrs Anayeli Itzel DO Work Phone: [facility] Comment on above: Well woman exam with routine gynecological exam Start: 03-02-2025 ambulatory [facility] Start: 02-28-2025 ambulatory [facility] Start: 02-28-2025 End: 02-28-2025 External Result Encounter Anayeli Morenoo DO Work Phone: [facility] Unsolicited Start: 02-28-2025 End: 02-28-2025 External Result Encounter Anayeli Morenoo DO Work Phone: [facility] Unsolicited Start: 02-24-2025 End: 02-24-2025 Emergency department patient visit [facility] Start: 02-02-2025 End: 02-03-2025 Refill Rajni Richardson DO Work Phone: [facility] Comment on above: Generalized anxiety disorder Start: 01-14-2025 End: 01-14-2025 Office outpatient visit 25 minutes Rajni Roca Dylantegan DO Work Phone: [facility] Comment on above: Severe persistent as thma with acute exacerbation ([facility]) (Primary Dx); Generalized anxiety disorder Start: 01-14-2025 End: 01-14-2025 ambulatory [facility] Start: 12-03-2024 End: 12-03-2024 Office outpatient new 45 minutes Rajni Abelino Richardsontegan DO Work Phone: [facility] Comment on above: Mild intermittent as thma with acute exacerbation (Primary Dx); Generalized anxiety disorder Start: 12-03-2024 End: 12-03-2024 ambulatory [facility] Start: 10-23-2024 End: 10-23-2024 Office outpatient visit 15 minutes Ruchi GUNTER Work Phone: [facility] Comment on above: Rash; Herpes, vulvovaginitis Start: 10-23-2024 End: 10-23-2024 Bamboo flowsheet Ruchi GUNTER Work Phone: [facility] Start: 10-23-2024 End: 10-23-2024 Bamboo flowsheet Ruchi GUNTER Work Phone: [facility] Start: 10-23-2024 End: 10-23-2024 ambulatory RUCHI SERNA Not Available Start: 10-21-2024 End: 10-21-2024 ambulatory [facility] Start: 04-29-2024 End: 04-29-2024 Bamboo flowsheet Ruchi GUNTER Work Phone: [facility] Start: 04-29-2024 End: 05-03-2024 Bamboo flowsheet Ruchi GUNTER Work Phone: [facility] Start: 04-29-2024 End: 05-03-2024 Clinisync Result Encounter Ruchi GUNTER Work Phone: [facility] External Department Unsolicited Start: 04-29-2024 End: 04-29-2024 ambulatory RUCHI SERNA Not Available Start: 04-29-2024 End: 04-29-2024 Patient encounter procedure Ruchi GUNTER Work Phone: [facility] Healthcare Work Phone: Start: 04-29-2024 End: 04-29-2024 Periodic preventive med est patient 18-39 yrs Ruchi GUNTER Work Phone: [facility] Comment on above: Well woman exam with routine gynecological exam; Vaginal discharge; Screen for STD (sexually transmitted disease) Start: 02-22-2024 End: 02-22-2024 ambulatory ANAYELI ITZEL Not Available Start: 11-02-2023 End: 11-02-2023 ambulatory ANAYELI ITZEL Not Available Start: 10-30-2023 End: 10-30-2023 ambulatory KEVIN GONZALEZ Not Available Start: 07-03-2023 ambulatory Jordy Kramer acility:[facility] Start: 01-11-2023 End: 01-11-2023 ambulatory RUCHI SERNA . Facility:[facility] Start: 07-08-[address] ANAYELI ROBBINS . Facili ty:[facility] Procedures Date Procedure Procedure Detail Performing Clinician Start: 02-28-2025 SERUM B HCG, 3RD I.S . ([place]) Anayeli Robbins DO Work Phone: Start: 01-14-2025 Follow-up visit Follow-up RAJNI BHAT Start: 01-14-2025 Adult depression screening assessment Rajni Bhat DO Work Phone: Start: 12-03-2024 Adult depression screening assessment Rajni Bhat DO Work Phone: Start: 10-21-2024 End: 10-21-2024 Ophth medical xm&eval compre new pt 1/> vst Hyperopia of both eyes with astigmatism [facility] OD Work Phone: Comment on above: Hyperopia of both ey es with astigmatism (Primary Dx) Start: 04-29-2024 IGP,APTIMA HPV,AGE GDLN Ruchi GUNTER Work Phone: Start: 04-29-2024 Microscopic observat ion [Identifier] in Cervix by Cyto stain [facility] OD Work Phone: Start: 01-11-2023 Microscopic observat ion [Identifier] in Cervix by Cyto stain Ruchi GUNTER Work Phone: Plan of Treatment Date Care Activity Detail Author Start: 07-17-2031 DTaP,Tdap and Td Vaccines (8 - Td or Tdap) DTaP,Tdap and Td Vaccines (8 - Td or Tdap) [facility] Start: 01-12-2028 Screening for malign ant neoplasm of cervix [facility] Start: 04-29-2027 Screening for malign ant neoplasm of cervix Pap Smear [facility] Start: 05-18-2026 End: 05-18-2026 Patient encounter procedure 05/18/2026 11:00 AM EDT Procedure Visit [facility] [address] [place] [address] Anayeli Robbins DO [address] [place] [address] [facility] [place] [facility] Start: 01-14-2026 Adult BMI Screening Adult BMI Screen ing [facility] Start: 01-14-2026 Depression Screening Depression Scre ening [facility] Start: 01-14-2026 Tobacco Screening Tobacco Screening [facility] Start: 12-03-2025 Adult BMI Screening Adult BMI Screen ing [facility] Start: 12-03-2025 Depression Screening Depression Scre ening [facility] Start: 12-03-2025 Tobacco Screening Tobacco Screening [facility] Start: 10-23-2025 End: 10-23-2025 Patient encounter procedure 10/23/2025 1:00 PM EST Office Visit [facility] [place] [address] [facility] [address] [address] [facility] Start: 10-21-2025 Tobacco Screening Tobacco Screening [facility] Start: 05-08-2025 End: 05-08-2025 Patient encounter procedure [facility] Comment on above: Arrived Start: 05-05-2025 Influenza vaccination [facility] Start: 03-17-2025 End: 03-17-2025 Patient encounter procedure 03/17/2025 2:30 PM EDT Office Visit [facility] [address] [place] [address] [place] [address] Rajni Bhat, [address] [place] [address], [facility] [address], [place] [address] [facility] Start: 03-01-2025 Adult BMI Screening Adult BMI Screen ing [facility] Start: 01-07-2025 End: 01-07-2025 Patient encounter procedure 01/07/2025 2:30 PM EDT Office Visit [facility] [address] [place] [address] [place] [address] Rajni Bhat, [address] [facility] [place], [place] [id number] [facility] Start: 10-23-2024 End: 10-23-2024 Patient encounter procedure 10/23/2024 2:10 PM EST Office Visit [facility] [address] [place] [id number] Ruchi Serna PA [address] [place], [place] [id number] Arrived [facility] Comment on above: Arrived Start: 05-05-2024 COVID-19 Vaccine ( season) COVID-19 Vaccine ( season) [facility] Start: 05-05-2024 Influenza vaccination [facility] Start: 04-30-2024 End: 04-30-2024 Patient encounter procedure 04/30/2024 2:00 PM EDT Office Visit [facility] [address] [place] [address] Kevin Gonzalez MD [address] [place] [address] [facility] Start: 2004 Adult BMI Follow Up Plan Adult BMI Follow Up Plan [facility] Start: 1998 [facility]IA TRACHOMATI S (GENITO/STI) CHLAMYDIA TRACHOMATIS (GENITO/STI) Lab Routine Screen for STD (sexually transmitted disease) Ordered: 04/29/2024 [facility] Work Phone: Comment on above: Ordered: 04/29/2024 Cytology Cervical or vaginal smear or scraping study Pap Smear Pathology and Cytology Routine Well woman exam with routine gynecological exam Ordered: 04/29/2024 [facility] Comment on above: Ordered: 04/29/2024 Cytology Cervical or vaginal smear or scraping study Pap Smear Pathology and Cytology Routine Well woman exam with routine gynecological exam Ordered: 05/08/2025 [facility] Work Phone: Comment on above: Ordered: 05/08/2025 Human papilloma viru s DNA [Presence] in Unspecified specimen by Probe with amplification HPV DNA probe, amplified Microbiology Routine Well woman exam with routine gynecological exam Ordered: 04/29/2024 [facility] Work Phone: Comment on above: Ordered: 04/29/2024 Human papilloma viru s DNA [Presence] in Unspecified specimen by Probe with amplification HPV DNA probe, amplified Microbiology Routine Well woman exam with routine gynecological exam Ordered: 04/29/2024 [facility] Comment on above: Ordered: 04/29/2024 Human papilloma viru s DNA [Presence] in Unspecified specimen by Probe with amplification HPV DNA probe, amplified Microbiology Routine Well woman exam with routine gynecological exam Ordered: 05/08/2025 [facility] Comment on above: Ordered: 05/08/2025 Neisseria gonorrhoea e DNA [Presence] in Unspecified specimen by JOSELYN with probe detection Neisseria gonorrhea DNA probe, direct Lab Routine Screen for STD (sexually transmitted disease) Ordered: 04/29/2024 [facility] Comment on above: Ordered: 04/29/2024 Immunizations Immunization Date Immunization Notes Care Provider J Carlos hernandez 07-17-2021 tetanus toxoid, redu astrid diphtheria toxoid, and acellular pertussis vaccine, adsorbed [facility] Work Phone: [facility] Payers Date Payer Category Payer Medicaid [id number] 2022 Medicaid [id number] 1985 Unknown [id number] 2.16.84 [id number] 1985 Unknown [id number] 2.16.84 [id number] 1985 Unknown [id number] 2.16. [id number] 1985 Unknown [id number] 2.16.84 [id number] 1985 Unknown [id number] 2.16.84 0.1.972100.3.579.2.9 1985 Unknown [id number] 2.16.84 0.1.358326.3.579.2.9 1985 Unknown [id number] 2.16.84 0.1.973140.3.579.2.9 1985 Unknown [id number] 2.16.84 [id number] 1985 Unknown [id number] 2.16. [id number] 1985 Unknown [id number] 2.16. 840.1.280078.3.579.2.6 1985 Unknown [id number] 2.16. [id number] 1985 Unknown [id number] 2.16. [id number] 1985 Unknown [id number] 2.16. [id number] 1958 Self-pay Social History Date Type Detail Facility Start: 09-25-2017 End: 10-20-2023 Tobacco smoking status INIS Never smoked tobacco [facility] Start: 11-02-2023 End: 10-23-2024 History of Social function [facility] Start: 11-02-2023 End: 10-23-2024 Tobacco use panel [facility] Start: 1985 Sex assigned at Not on file [facility] Start: 09-25-2017 Tobacco use and exposure Smoke less tobacco non-user [facility] Start: 10-21-2024 End: 01-14-2025 Alcoholic beverage intake Ex-drinker (finding) [facility] Frequency of Alcohol Consumption Never [facility] Start: 04-09-2015 Sex Female (finding) [facility] Start: 12-03-2024 Alcohol Comment occosinal [facility] Start: 01-14-2025 Alcohol Comment rare [facility] Clinical Notes 04-29-2024 to 05-08-2025 Marlena Jeffries, PET NUTRITION SPECIALIST - 05/08/2025 11:00 AM EDTAssessment & Plan Note - Rajni Bhat, DO - 01/14/2025 4:34 PM EDTAssessment & Plan Note - Rajni Bhat, DO - 01/14/2025 4:34 PM EDT Note Date & Type Note Facility 05-08-2025 History of Presen t illness Narrative Reason for Appointment: Patient ID: Seema Walker is a 39 y.o. 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) 10/30/2023 Moderate persistent asthma without complication (HCC) 10/30/2023 Seasonal allergic rhinitis due to pollen 10/30/2023 Moderate persistent asthma with (acute) exacerbation (HCC) 10/30/2023 Yeast infection 11/02/2023 Exposure to STD 11/02/2023 Vaginal discharge 11/02/2023 Resolved Ambulatory Problems Diagnosis Date Noted No Resolved Ambulatory Problems Past Medical History: Diagnosis Date Encounter for IUD insertion Encounter for IUD removal 02/27/2023 Herpes Irregular periods intermediate (current) use of inhaled steroids Menorrhagia with irregular cycle HISTORY PAST MEDICAL HISTORY SOCIAL HISTORY Past Medical History: Diagnosis Date Encounter for IUD insertion Encounter for IUD removal 02/27/2023 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 Exam conducted with a software engineer present. Vitals: Estimated body mass index is 26.16 kg/m as calculated from the following: Height as [...] by Marlena Jeffries NP on behalf of: Anayeli Robbins DO documented in this encounter [facility] 01-14-2025 Evaluation + Plan note Associated Problem(s): Generalized anxiety disorder Anxiety symptoms have improved with starting on Lexapro 10 mg 1 tablet daily and using hydroxyzine 25 mg 1 capsule daily as needed for anxiety. Continue with current medications [facility] 01-14-2025 Miscellaneous Notes Associate d Problem(s): Generalized anxiety disorder Anxiety symptoms have improved with starting on Lexapro 10 mg 1 tablet daily and using hydroxyzine 25 mg 1 capsule daily as needed for anxiety. Continue with current medications Associated Problem(s): Asthma Based on her current and persistent symptoms [...] on how medication worked with breathing symptoms documented in this encounter [facility] 01-14-2025 Evaluation + Plan note Associated Problem(s): Asthma Based on her current and persistent symptoms [...] on how medication worked with breathing symptoms [facility] 01-14-2025 History of Presen t illness Narrative Images from the original note were not included. [facility] [address] [place] [address] [place] [address] Patient: Seema Walker Date of : 1985 Encounter Date: 01/14/2025 Subjective: Chief Complaint Chief Complaint Patient presents with Follow-up History of Present Illness Seema Walker is a 39 y.o. female, established patient, that presents to the office for anxiety and asthma follow up. History provided by patient Asthma She complains of chest tightness and shortness of breath. This is a chronic (One-month follow-up.) problem. Episode onset: Has been present since childhood. The problem has been unchanged (She states that prednisone 20 mg daily for 5 days did not help with symptoms. Patient states that she has been using albuterol 2 to 3 times per day for shortness of breath and wheezing). Pertinent negatives include no fever. Her symptoms are aggravated by climbing stairs. Her symptoms are alleviated by beta-agonist. Her symptoms are not alleviated by oral steroids (She states typically oral steroids are effective for her but the 5 day course of oral prednisone 20 mg was not effective). Her past medical history is significant for asthma. Past medical history comments: Last pulmonary function test from 2022 showed severe obstructive airflow defect with significant post bronchodilator response. Findings favor process such as asthma. There is evidence of hyperinflation and air trapping physiology. Diffusion capacity is normal.. Anxiety Presents for follow-up (1 month follow up. Started on lexapro 10 mg daily and has been usung hydroxyzine 25 mg intermittently when she anticipates feeling nervous) visit. Symptoms include shortness of breath. Primary symptoms comment: Patient reports that her symptoms of anxiety have improved with the current treatment. She states that she uses the hydroxyzine when she anticipates going into a stressful situation which is effective at reducing her stress and anxiety. Her past medical history is significant for asthma. Review of Systems Review of Systems Constitutional: Negative for fever. Respiratory: Positive for shortness of breath. Vital Signs BP 130/70 (BP Site: Left Arm, BP Postition: Sitting) Pulse 84 Temp 36.9 C (98.4 F) (Oral) Wt 66 kg (145 lb 9.6 oz) LMP 12/29/2024 (Exact Date) SpO2 97% BMI 28.44 kg/m Physical Exam Physical Exam Vitals reviewed. Constitutional: General: She is not in acute distress. Appearance: She is not ill-appearing or toxic-appearing. Cardiovascular: Rate and Rhythm: Normal rate and regular rhythm. Pulses: Posterior tibial pulses are 2+ on the right side and 2+ on the left side. Heart sounds: No murmur heard. Pulmonary: Effort: No accessory muscle usage or respiratory distress. Breath sounds: No decreased breath sounds, wheezing, rhonchi or rales. Abdominal: General: Bowel sounds are normal. Palpations: Abdomen is soft. Tenderness: There is no abdominal tenderness. Musculoskeletal: Right lower leg: No edema. Left lower leg: No edema. Psychiatric: Mood and Affect: Mood and affect normal. Speech: Speech normal. Behavior: Behavior normal. Past Medical, Family, Surgery and Social History Past Medical History: Diagnosis Date Asthma Hypertension History reviewed. No pertinent surgical history. Family History Problem Relation Age of Onset Hypertension Father Diabetes Father Leukemia Brother Sickle cell anemia Son Social History Socioeconomic History Marital status: Single Spouse name: Not on file Number of children: Not on file Years of education: Not on file Highest education level: Not on file Occupational History Not on file Tobacco Use Smoking status: Never Smokeless tobacco: Never Vaping Use Vaping status: Never Used Substance and Sexual Activity Alcohol use: Not Currently Comment: rare Drug use: No Sexual activity: Yes Partners: Male Other Topics Concern Not on file Social History Narrative Not on file Social Drivers of Health Financial Resource Strain: Not on file Food Insecurity: No Food Insecurity (01/14/2025) Hunger Screening Food Insecurity - Worry: Never True Food Insecurity - Inability: Never True Transportation Needs: Not on file Physical Activity: Not on file Stress: Not on file Social Connections: Not on file Interpersonal Safety: Not on file Housing Instability: Not on file Allergies and Current Medications No Known Allergies Current Outpatient Medications on File Prior to Visit Medication Sig albuterol (PROVENTIL HFA;VENTOLIN HFA) 90 mcg/actuation inhaler Inhale 2 puffs every 6 (six) hours as needed for wheezing. albuterol (PROVENTIL,VENTOLIN) 2.5 mg /3 mL (0.083 %) nebulizer solution Inhale 3 mL (2.5 mg total) by nebulization every 4 (four) hours as needed for wheezing. albuterol (PROVENTIL,VENTOLIN) 2.5 mg /3 mL (0.083 %) nebulizer solution Inhale 3 mL (2.5 mg total) by nebulization every 6 (six) hours as needed for wheezing. escitalopram (LEXAPRO) 10 mg tablet Take 1 tablet (10 mg total) by mouth in the morning. hydrOXYzine (VISTARIL) 25 mg capsule Take 1 capsule (25 mg total) by mouth daily as needed for anxiety. No current facility-administered medications on file prior to visit. Assessment/Plan: 1. Severe persistent asthma with acute exacerbation ([facility]) - tmdeaaghin-hgcaluao-heauyhcbuf 160-9-4.8 mcg/actuation HFA aerosol inhaler; Inhale 2 puffs in the morning and 2 puffs before bedtime. Lot [id number] Exp 2027-05. Dispense: 5.9 g; Refill: 0 2. Generalized anxiety disorder Asthma Based on her current and persistent symptoms [...] on how medication worked with breathing symptoms Generalized anxiety disorder Anxiety symptoms have improved with starting on Lexapro 10 mg 1 tablet daily and using hydroxyzine 25 mg 1 capsule daily as needed for anxiety. Continue with current medications Patient Instructions Hold Symbicort for now. Given samples of Breztri to use 2 puffs inhaled twice daily for asthma symptoms. Continue with Albuterol as needed for shortness of breath and wheezing. Call office to update when samples completed Anxiety symptoms improved. Continue with Lexapro 10 mg 1 tablet daily and use hydroxyzine 25 mg 1 capsule daily as needed for acute anxiety. Follow-up: 2 months asthma follow up - Rajni Bhat DO 01/14/25 4:35 PM documented in this encounter [facility] 01-14-2025 Instructions Rajni Bhat DO - 01/14/2025 3:00 PM EDT Hold Symbicort for now. Given samples of Breztri to use 2 puffs inhaled twice daily for asthma symptoms. Continue with Albuterol as needed for shortness of breath and wheezing. Call office to update when samples completed Anxiety symptoms improved. Continue with Lexapro 10 mg 1 tablet daily and use hydroxyzine 25 mg 1 capsule daily as needed for acute anxiety. documented in this encounter [facility] 12-03-2024 Evaluation + Plan note Associated Problem(s): Asthma Patient's maintenance medications include Symbicort 160/4.5 mcg [...] of infection so antibiotic was not prescribed [facility] 12-03-2024 Miscellaneous Notes Associate d Problem(s): Asthma Patient's maintenance medications include Symbicort 160/4.5 mcg [...] of infection so antibiotic was not prescribed Associated Problem(s): Generalized anxiety disorder Patient had responded previously to SSRI and hydroxyzine. We will restart SSRI escitalopram 10 mg 1 tablet daily and use hydroxyzine 25 mg 1 capsule daily as needed for acute/ situation anxiety. Discussed with patient potential side effects and if she develops them or has worsening symptoms or suicidal ideations to stop medications and contact office documented in this encounter [facility] 12-03-2024 Evaluation + Plan note Associated Problem(s): Generalized anxiety disorder Patient had responded previously to SSRI and hydroxyzine. We will restart SSRI escitalopram 10 mg 1 tablet daily and use hydroxyzine 25 mg 1 capsule daily as needed for acute/ situation anxiety. Discussed with patient potential side effects and if she develops them or has worsening symptoms or suicidal ideations to stop medications and contact office [facility] 12-03-2024 History of Presen t illness Narrative Images from the original note were not included. [facility] [address] [place] [address] [place] [address] Patient: Seema Walker Date of : 1985 Encounter Date: 12/03/2024 Subjective: Chief Complaint Chief Complaint Patient presents with Establish Care History of Present Illness Seema Walker is a 39 y.o. female, NEW patient, that presents to the office to establish care. Patient with hx of asthma. History provided by patient. Asthma She complains of chest tightness and shortness of breath (Occurs when over exerting herself. She states that not able to run). There is no cough or wheezing. This is a chronic (Diagnosed in childhood) problem. Progression since onset: Has been using albuterol rescue inhaler or nebulizer every day over the past week. Provides some relief temporarily. Associated symptoms include dyspnea on exertion. Pertinent negatives include no ear congestion, ear pain, fever, nasal congestion, postnasal drip, rhinorrhea, sneezing, sore throat or trouble swallowing. Associated symptoms comments: She can hear stridorous breath. Her symptoms are aggravated by emotional stress. Risk factors: Symbicort 2 puffs twice daily and albuterol rescue inhaler. Her past medical history is significant for asthma. Past medical history comments: Has been to ED for treatment for asthma exacerbation but no hospitalizations. Last PFT 05/2023 . Anxiety Presents for initial visit. Symptoms include decreased concentration (She will jump around from one task to another and then will forget to complete tasks), obsessions, restlessness (Trouble sitting still) and shortness of breath (Occurs when over exerting herself. She states that not able to run). Patient reports no suicidal ideas. Primary symptoms comment: Describes as feeling overwhelmed quickly and if situation not organized than will cause her to feel anxious. The quality of sleep is poor (She states that she will wake and having trouble falling asleep). Her past medical history is significant for asthma. Treatments tried: Previously prescribed fluoxetine 20 mg daily and hydroxyzine to use situationally. She states that medications did seem to help. Review of Systems Review of Systems Constitutional: Negative for fever. HENT: Negative for ear pain, postnasal drip, rhinorrhea, sneezing, sore throat and trouble swallowing. Respiratory: Positive for shortness of breath (Occurs when over exerting herself. She states that not able to run). Negative for cough and wheezing. Cardiovascular: Positive for dyspnea on exertion. Musculoskeletal: Left hand dominant Neurological: Feels jumpiness in right upper extremity has limited mobility in right hand Psychiatric/Behavioral: Positive for decreased concentration (She will jump around from one task to another and then will forget to complete tasks). Negative for suicidal ideas. Vital Signs BP 112/80 (BP Site: Left Arm, BP Postition: Sitting) Pulse 77 Temp 36.3 C (97.4 F) (Oral) Ht 152.4 cm (5') Wt 67.9 kg (149 lb 12.8 oz) SpO2 96% BMI 29.26 kg/m Physical Exam Physical Exam Vitals reviewed. Constitutional: General: She is not in acute distress. Appearance: She is not ill-appearing or toxic-appearing. HENT: Head: Normocephalic. Salivary Glands: Right salivary gland is not diffusely enlarged or tender. Left salivary gland is not diffusely enlarged or tender. Right Ear: No middle ear effusion. Tympanic membrane is not injected, erythematous, retracted or bulging. Left Ear: No middle ear effusion. Tympanic membrane is not injected, erythematous, retracted or bulging. Nose: Right Turbinates: Not enlarged or swollen. Left Turbinates: Not enlarged or swollen. Right Sinus: No maxillary sinus tenderness or frontal sinus tenderness. Left Sinus: No maxillary sinus tenderness or frontal sinus tenderness. Mouth/Throat: Mouth: Mucous membranes are moist. Pharynx: Oropharynx is clear. No pharyngeal swelling, oropharyngeal exudate, posterior oropharyngeal erythema, uvula swelling or postnasal drip. Tonsils: 2+ on the right. 2+ on the left. Eyes: Extraocular Movements: Extraocular movements intact. Right eye: Normal extraocular motion and no nystagmus. Left eye: Normal extraocular motion and no nystagmus. Conjunctiva/sclera: Conjunctivae normal. Pupils: Pupils are equal, round, and reactive to light. Cardiovascular: Rate and Rhythm: Normal rate and regular rhythm. Pulses: Radial pulses are 2+ on the right side. Posterior tibial pulses are 2+ on the right side and 2+ on the left side. Heart sounds: No murmur heard. Pulmonary: Effort: No tachypnea, accessory muscle usage or respiratory distress. Breath sounds: Normal breath sounds. No decreased breath sounds, wheezing, rhonchi or rales. Abdominal: General: Bowel sounds are normal. There is no distension. Palpations: Abdomen is soft. Musculoskeletal: Right hand: Deformity (Minimal extension at the carpometacarpal joints and flexion of the IP joints of the fingers most notable on the lateral digits) present. Cervical back: Neck supple. Right lower leg: No edema. Left lower leg: No edema. Comments: Ambulating patient does not have firm heel strike on the right side Lymphadenopathy: Cervical: No cervical adenopathy. Neurological: Mental Status: She is alert. Psychiatric: Attention and Perception: Attention normal. Mood and Affect: Mood and affect normal. Speech: Speech normal. Behavior: Behavior normal. Behavior is cooperative. Past Medical, Family, Surgery and Social History Past Medical History: Diagnosis Date Asthma Hypertension History reviewed. No pertinent surgical history. Family History Problem Relation Age of Onset Hypertension Father Diabetes Father Leukemia Brother Sickle cell anemia Son Social History Socioeconomic History Marital status: Single Spouse name: Not on file Number of children: Not on file Years of education: Not on file Highest education level: Not on file Occupational History Not on file Tobacco Use Smoking status: Never Smokeless tobacco: Never Substance and Sexual Activity Alcohol use: Not Currently Comment: occosinal Drug use: No Sexual activity: Yes Partners: Male Other Topics Concern Not on file Social History Narrative Not on file Social Drivers of Health Financial Resource Strain: Not on file Food Insecurity: No Food Insecurity (12/03/2024) Hunger Screening Food Insecurity - Worry: Never True Food Insecurity - Inability: Never True Transportation Needs: Not on file Physical Activity: Not on file Stress: Not on file Social Connections: Not on file Interpersonal Safety: Not on file Housing Instability: Not on file Allergies and Current Medications No Known Allergies Current Outpatient Medications on File Prior to Visit Medication Sig albuterol (PROVENTIL HFA;VENTOLIN HFA) 90 mcg/actuation inhaler Inhale 2 puffs every 6 (six) hours as needed for wheezing. albuterol (PROVENTIL,VENTOLIN) 2.5 mg /3 mL (0.083 %) nebulizer solution Inhale 3 mL (2.5 mg total) by nebulization every 4 (four) hours as needed for wheezing. albuterol (PROVENTIL,VENTOLIN) 2.5 mg /3 mL (0.083 %) nebulizer solution Inhale 3 mL (2.5 mg total) by nebulization every 6 (six) hours as needed for wheezing. budesonide-formoterol (SYMBICORT) 160-4.5 mcg/actuation inhaler Inhale 2 puffs in the morning and 2 puffs before bedtime. No current facility-administered medications on file prior to visit. Assessment/Plan: 1. Mild intermittent asthma with acute exacerbation - predniSONE (DELTASONE) 20 mg tablet; Take 1 tablet (20 mg total) by mouth in the morning for 5 days. Dispense: 5 tablet; Refill: 0 2. Generalized anxiety disorder - escitalopram (LEXAPRO) 10 mg tablet; Take 1 tablet (10 mg total) by mouth in the morning. Dispense: 30 tablet; Refill: 1 - hydrOXYzine (VISTARIL) 25 mg capsule; Take 1 capsule (25 mg total) by mouth daily as needed for anxiety. Dispense: 20 capsule; Refill: 0 Generalized anxiety disorder Patient had responded previously to SSRI and hydroxyzine. We will restart SSRI escitalopram 10 mg 1 tablet daily and use hydroxyzine 25 mg 1 capsule daily as needed for acute/ situation anxiety. Discussed with patient potential side effects and if she develops them or has worsening symptoms or suicidal ideations to stop medications and contact office Asthma Patient's maintenance medications include Symbicort 160/4.5 mcg [...] of infection so antibiotic was not prescribed Patient Instructions Start on prednisone 20 mg daily for 5 days to get control of breathing issues. Will then reassess daily medications to control your symptoms better. Continue with Symbicort 2 puffs twice daily and using albuterol inhaler as needed for shortness of breath or wheezing Start on escitalopram 10 mg daily for anxiety and use hydroxyzine as needed for acute anxiety Follow-up: 3 to 4 weeks asthma/anxiety follow-up - Rajni Bhat DO 12/03/24 5:42 PM [facility] Instructions Rajni Bhat DO - 12/03/2024 2:00 PM EDT Start on prednisone 20 mg daily for 5 days to get control of breathing issues. Will then reassess daily medications to control your symptoms better. Continue with Symbicort 2 puffs twice daily and using albuterol inhaler as needed for shortness of breath or wheezing Start on escitalopram 10 mg daily for anxiety and use hydroxyzine as needed for acute anxiety [facility] History of Presen t illness Narrative Images from the original note were not included. Reason for Appointment: Patient ID: Seema Walker is a 39 y.o. female who presents for Rash (Pt present today for a rash near vaginal area.) Patient presents today for Acute Visit. MEDICATIONS Current Outpatient Medications Medication Instructions acyclovir [...] 25 mg, Oral, 4 times daily PRN montelukast (Singulair) 10 MG tablet montelukast 10 mg tablet Symbicort 160-4.5 MCG/ACT inhaler 2 puffs, Inhalation, 2 times daily, Rinse mouth after use. 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 ([facility]) 10/30/2023 Moderate persistent asthma without complication ([facility]) 10/30/2023 Seasonal allergic rhinitis due to pollen 10/30/2023 Moderate persistent asthma with (acute) exacerbation ([facility]) 10/30/2023 Yeast infection 11/02/2023 Exposure to STD 11/02/2023 Vaginal discharge 11/02/2023 Resolved Ambulatory Problems Diagnosis Date Noted No Resolved Ambulatory Problems Past Medical History: Diagnosis Date Encounter for IUD insertion Encounter for IUD removal 02/27/2023 Herpes 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 periods 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 Menorrhagia with irregular cycle HISTORY PAST MEDICAL HISTORY SOCIAL HISTORY Past Medical History: Diagnosis Date Encounter for IUD insertion Encounter for IUD removal 02/27/2023 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 She is normal weight. Genitourinary: Genitourinary Comments: Lesions consistent with herpetic outbreak Right Labia: lesions. HENT: Head: Normocephalic. Cardiovascular: Rate and Rhythm: Normal rate. Pulses: Normal pulses. Pulmonary: Effort: Pulmonary effort is normal. Breath sounds: Normal breath sounds. Abdominal: Palpations: Abdomen is soft. Musculoskeletal: General: Normal range of motion. Neurological: General: No focal deficit present. Mental Status: She is alert and oriented to person, place, and time. Psychiatric: Mood and Affect: Mood normal. Behavior: Behavior normal. Thought Content: Thought content normal. Judgment: Judgment normal. Vitals and nursing note reviewed. Vitals: Estimated body mass index is 27.62 kg/m as calculated from the following: Height as of 02/27/23: 5' 2 . Weight as of this encounter: 151 lb. BP: 118/70 No LMP recorded. ASSESSMENT & PLAN ICD-10-CM 1. Rash R21 2. Herpes, vulvovaginitis A60.04 valACYclovir (Valtrex) 1 g tablet DISCONTINUED: valACYclovir (Valtrex) 500 MG tablet Patient presents today for pain noted the genital region. Patient has history of herpes and exam consistent with out break. She has been using medication at home but admits it may be old. We will send in Valtrex to pharmacy of choice Documented by LYRIC Mann on behalf of: LYRIC Mann documented in this encounter [facility] 10-21-2024 History of Presen t illness Narrative Seema Walker had concerns including Eye Exam. HPI Eye Exam In both eyes. 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 Patient has been without Rx glasses for about 2 years due to them being lost. Patient states her vision is blurry up close. Last edited by Yannick Brannon on 10/21/2024 1:56 PM. ROS Negative for: Constitutional, Gastrointestinal, Neurological, Skin, Genitourinary, Musculoskeletal, HENT, Endocrine, Cardiovascular, Eyes, Respiratory, Psychiatric, Allergic/Imm, Heme/Lymph Last edited by Yannick Brannon on 10/21/2024 1:56 PM. No current outpatient medications on file. (Ophthalmic Drugs) No current facility-administered medications for this visit. (Ophthalmic Drugs) Current Outpatient Medications (Other) Medication Sig albuterol (PROVENTIL HFA;VENTOLIN HFA) 90 mcg/actuation inhaler Inhale 2 puffs every 6 (six) hours as needed for wheezing. albuterol (PROVENTIL,VENTOLIN) 2.5 mg /3 mL (0.083 %) nebulizer solution Inhale 3 mL (2.5 mg total) by nebulization every 4 (four) hours as needed for wheezing. albuterol (PROVENTIL,VENTOLIN) 2.5 mg /3 mL (0.083 %) nebulizer solution Inhale 3 mL (2.5 mg total) by nebulization every 6 (six) hours as needed for wheezing. budesonide-formoterol (SYMBICORT) 160-4.5 mcg/actuation inhaler Inhale 2 puffs in the morning and 2 puffs before bedtime. cyclobenzaprine (FLEXERIL) 10 mg tablet Take 1 tablet (10 mg total) by mouth 2 (two) times a day as needed for muscle spasms. ibuprofen (MOTRIN) 800 mg tablet Take 1 tablet (800 mg total) by mouth every 6 (six) hours as needed for pain. lidocaine (LIDODERM) 5 % Place 1 patch on the skin daily. Remove & Discard patch within 12 hours or as directed by MD (Patient not taking: Reported on 10/21/2024) No current facility-administered medications for this visit. (Other) Family History Problem Relation Age of Onset Hypertension Father Diabetes Father Leukemia Brother Sickle cell anemia Son Social History Socioeconomic History Marital status: Single Spouse name: Not on file Number of children: Not on file Years of education: Not on file Highest education level: Not on file Occupational History Not on file Tobacco Use Smoking status: Never Smokeless tobacco: Never Substance and Sexual Activity Alcohol use: Not Currently Drug use: No Sexual activity: Yes Partners: Male Other Topics Concern Not on file Social History Narrative Not on file Social Drivers of Health Financial Resource Strain: Not on file Food Insecurity: No Food Insecurity (03/01/2024) Hunger Screening Food Insecurity - Worry: Never True Food Insecurity - Inability: Never True Transportation Needs: Not on file Physical Activity: Not on file Stress: Not on file Social Connections: Not on file Interpersonal Safety: Not on file Housing Instability: Not on file Ms. Walker has a past medical history of Asthma and Hypertension. She has no past surgical history on file. Base Eye Exam Visual Acuity (Snellen - Linear) Right Left Dist sc 20/20 -1 20/20 Near mi J6 J3 Tonometry (Tonopen, 2:08 PM) Right Left Pressure 8 10 Pupils Pupils APD Right PERRL None Left PERRL None Visual Sheth Right Left Full Full Extraocular Movement Right Left Full Full Dilation Both eyes: 1.0% Mydriacyl, 2.5% Richard Synephrine @ 2:10 PM Slit Lamp and Fundus Exam External Exam Right Left External Normal Normal Slit Lamp Exam Right Left Lids/Lashes Normal Normal Conjunctiva/Sclera White and quiet White and quiet Cornea Clear Clear Anterior Chamber Deep and quiet Deep and quiet Iris Round and reactive Round and reactive Lens Clear Clear Fundus Exam Right Left Posterior Vitreous Normal Normal Disc Normal Normal C/D Ratio Vertical 0.2 0.2 C/D Ratio Horizontal 0.2 0.2 Macula Normal Normal Vessels Normal Normal Periphery Normal Normal Refraction Manifest Refraction Sphere Cylinder [place] Right +1.75 -0.25 144 Left +1.50 -0.25 007 Final Rx Sphere Cylinder [place] Dist [place] Right +1.50 -0.50 165 20/20- Left +1.00 -0.25 170 20/25 Expiration Date: 10/21/2026 Diagnosis 1. Hyperopia of both eyes with astigmatism 1. Hyperopia of both eyes with astigmatism (Primary) Gave new Rx for glasses today OU. Patient Education: Questions were encouraged to stated satisfaction from the patient. Discussed with patient that failure to follow up as recommended (appointment time, onset of new ocular symptoms) can lead to permanent loss of vision and/or blindness. Patient understands and agrees. IMIRYAM OD personally performed the services described in the documentation, as scribed by ... in my presence, and it is both accurate and complete. 2:36 PM 10/21/24 Return Visit: 1 year VE Physician: MIRYAM MCGOWAN OD Work Car Operator: Iesha Malhotra Scribed for and in the presence of MIRYAM MCGOWAN OD by Iesha Malhotra documented in this encounter [facility] 04-29-2024 History of Presen t illness Narrative Reason for Appointment: Patient ID: Seema Walker is a 38 y.o. female who presents for Well Women [...] 25 mg, Oral, 4 times daily PRN montelukast (Singulair) 10 MG tablet montelukast 10 mg tablet Symbicort 160-4.5 MCG/ACT inhaler 2 puffs, Inhalation, 2 times daily, Rinse mouth after use. 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 ([facility]) 10/30/2023 Moderate persistent asthma without complication ([facility]) 10/30/2023 Seasonal allergic rhinitis due to pollen 10/30/2023 Moderate persistent asthma with (acute) exacerbation ([facility]) 10/30/2023 Yeast infection 11/02/2023 Exposure to STD 11/02/2023 Vaginal discharge 11/02/2023 Resolved Ambulatory Problems Diagnosis Date Noted No Resolved Ambulatory Problems Past Medical History: Diagnosis Date Encounter for IUD insertion Encounter for IUD removal 02/27/2023 Herpes Irregular periods intermediate (current) use of inhaled steroids Menorrhagia with irregular cycle HISTORY PAST MEDICAL HISTORY SOCIAL HISTORY Past Medical History: Diagnosis Date Encounter for IUD insertion Encounter for IUD removal 02/27/2023 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 She is well-developed. Genitourinary: Vulva normal. Right Adnexa: not tender and no mass present. Left Adnexa: not tender and no mass present. No cervical discharge. Breasts: Breasts are soft. Right: Normal. Left: Normal. HENT: Head: Normocephalic. Nose: Nose normal. Mouth/Throat: Mouth: Mucous membranes are moist. Cardiovascular: Rate and Rhythm: Normal rate and regular rhythm. Pulmonary: Effort: Pulmonary effort is normal. Breath sounds: Normal breath sounds. Abdominal: General: Bowel sounds are normal. There is no distension. Palpations: Abdomen is soft. Tenderness: There is no abdominal tenderness. There is no guarding or rebound. Musculoskeletal: General: No swelling. Normal range of motion. Cervical back: Normal range of motion. Right lower leg: No edema. Left lower leg: No edema. Neurological: General: No focal deficit present. Mental Status: She is alert and oriented to person, place, and time. Skin: General: Skin is warm and dry. Psychiatric: Mood and Affect: Mood normal. Behavior: Behavior normal. Vitals and nursing note reviewed. Exam conducted with a software engineer present. Vitals: Estimated body mass index is 27.76 kg/m as calculated from the following: Height as of 02/27/23: 5' 2 . Weight as of this encounter: 151 lb 12.8 oz. BP: 118/72 Patient's last menstrual period was 04/07/2024. ASSESSMENT & PLAN ICD-10-CM 1. Well woman exam with routine gynecological exam Z01.419 Pap Smear HPV DNA probe, amplified 2. Vaginal discharge N89.8 SURESWAB(R) ADVANCED VAGINITIS PLUS, TMA 3. Screen for STD (sexually transmitted disease) Z11.3 CHLAMYDIA TRACHOMATIS (GENITO/STI) Neisseria gonorrhea DNA probe, direct Annual Exam: Patient presents today for an annual exam. Patient states she is doing well with complaints of vaginal discharge. Pap was obtained without difficulty. C/o vaginal discharge, cultures obtained and pt will be treated as necessary, no obvious abnormality with exam Orders Placed This Encounter Procedures HPV DNA probe, amplified CHLAMYDIA TRACHOMATIS (GENITO/STI) Neisseria gonorrhea DNA probe, direct Follow Up: Patient is to return in one year for annual unless needed otherwise. Documented by Madison Crump LPN on behalf of: LYRIC Mann documented in this encounter [facility] Evaluation note Diagnosis Well woman exam with routine gynecological exam Routine gynecological examination Vaginal discharge Leukorrhea, not specified as infective Screen for STD (sexually transmitted disease) Screening examination for venereal disease documented [facility] Diagnosis Hyperopia of both eyes with astigmatism- Primary [facility] this [facility] Diagnosis Moderate persistent asthma with (acute) exacerbation ([facility])- Primary JASON (generalized anxiety disorder) ([facility]) Generalized anxiety disorder Rash Rash and other nonspecific skin eruption Herpes, vulvovaginitis documented [facility] Diagnosis Mild intermittent asthma with acute exacerbation- Primary Generalized anxiety disorder [facility] Diagnosis Mild intermittent asthma with acute exacerbation- Primary Generalized anxiety disorder Severe persistent asthma with acute exacerbation (CMS-HCC)- Primary Generalized anxiety disorder [facility] Diagnosis Mild intermittent asthma with acute exacerbation- Primary Generalized anxiety disorder Severe persistent asthma with acute exacerbation (CMS-HCC)- Primary Generalized anxiety disorder Generalized anxiety disorder [facility] Diagnosis Moderate persistent asthma with (acute) exacerbation (HCC)- Primary JASON (generalized anxiety disorder) Generalized anxiety disorder Well woman exam with routine gynecological exam Routine gynecological examination documented in this encounter [facility] filedocumented [facility]ocument[facility] Purpose Family History No Family History Records FoundNo Family History Records FoundNo Family History Records FoundNo Family History Records FoundNo Family History Records FoundNo Family History Records FoundNo Family History Records Found Advance Directives No Advanced Directives Records FoundNo Advanced Directives Records FoundNo Advanced Directives Records FoundNo Advanced Directives Records FoundNo Advanced Directives Records FoundNo Advanced Directives Records FoundNo Advanced Directives Records Found Additional Source Comments INFORMATION SOURCE (unrecogn ized section and content) DATE CREATED AUTHOR 01/21/2020 [facility] DATE CREATED AUTHOR AUTHOR'S ORGANIZ ATION 01/15/2023 [facility] DATE CREATED AUTHOR AUTHOR'S ORGANIZ ATION 09/13/2023 [facility] DATE CREATED AUTHOR AUTHOR'S ORGANIZ ATION 10/22/2024 [facility] DATE CREATED AUTHOR AUTHOR'S ORGANIZ ATION 10/25/2024 [facility] DATE CREATED AUTHOR AUTHOR'S ORGANIZ ATION 01/15/2025 [facility] DATE CREATED AUTHOR AUTHOR'S ORGANIZ ATION 03/02/2025 [facility] Care Teams (unrecognized sec tion and content) Delicatessen Manager Relationship Specialty Start Date End Date Kevin Gonzalez MD [address] [place] [phone] PCP - General Family Medicine 10/20/23 Delicatessen Manager Relationship Specialty Start Date End Date Kevin Gonzalez MD [address] [place] [phone] PCP - General Family Medicine 10/20/23 Delicatessen Manager Relationship Specialty Start Date End Date Kevin Gonzalez MD [address] [place] [phone] PCP - General Family Medicine 10/20/23 Delicatessen Manager Relationship Specialty Start Date End Date No Pcp, [place] [address] PCP - General Family Medicine 10/21/24 Delicatessen Manager Relationship Specialty Start Date End Date Kevin Gonzalez MD [address] [place] [phone] PCP - General Family Medicine 10/20/23 Anayeli Robbins DO [address] [place] [address] [address] [place] [address] PCP - [facility] 06/04/24 Delicatessen Manager Relationship Specialty Start Date End Date Kevin Gonzalez MD [address] [place] [phone] PCP - General Family Medicine 10/20/23 Anayeli Robbins DO [address] [place] [address] [address] [place] [address] PCP - [facility] Marisa [facility] 06/04/24 Delicatessen Manager Relationship Specialty Start Date End Date Rajni Bhat DO [address] [place] [address], [address] [place], [place] [phone] PCP - General Family Medicine 12/03/24 Delicatessen Manager Relationship Specialty Start Date End Date Rajni Bhat DO [address] [facility], [facility], [facility] [place] [address] PCP - General Family Medicine 12/03/24 Delicatessen Manager Relationship Specialty Start Date End Date Anayeli Robbins DO [address] [place] [address] PCP - [facility] Mar[facility] 06/04/24 Rajni Bhat MD [address] [place] [id number] PCP - General Pediatrics 02/25/25 Delicatessen Manager Relationship Specialty Start Date End Date Anayeli Robbins DO [address] [place] [place] [address] PCP - [facility] Mar[facility] 06/04/24 Rajni Bhat MD [address] [place] [id number] PCP - General Pediatrics 02/25/25 Reason for Visit (unrecogniz ed section and content) Reason Comments Well Women Visit Reason Comments Eye Exam Reason Comments Rash Pt present today for a rash near vaginal area. Reason Comments Establish Care Reason Comments Follow-up Reason Comments Med Refill FOR RECORDS PERTAINING TO PATIENTS WHO ARE OR HAVE BEEN ENROLLED IN A CHEMICAL DEPENDENCY/SUBSTANCEABUSE PROGRAM, SOME INFORMATION MAY BE OMITTED. This clinical summary was aggregated from multiple sources. Caution should be exercised in using it in the provision of clinical care. This summary normalizes information from multiple sources, and as a consequence, information in this document may materially change the coding, format and clinical context of patient data. In addition, data may be omitted in some cases. CLINICAL DECISIONS SHOULD BE BASED ON THE PRIMARY CLINICAL RECORDS. [facility] provides no warranty or guarantee of the accuracy or completeness of information in this document.
[2025-05-12 20:13] LABS: Age Gdln ACOG Testing Note (.); IGP, Aptima HPV, rfx 16/18,45 Note (.)
== END 2025-05-08 15:11 | disposition home or self-care (01) ==
LOC: LAB 15:10
PROVIDERS: Visit Provider Obstetrics & Gynecology
DX: Z01.419 Encounter for gynecological examination (general) (routine) without abnormal findings (principal)
CPT/HCPCS: 87624; 88175